=== PATIENT | female | born 1945 | race Caucasian/White ===

== ENCOUNTER 2020-09-20 16:13 | Outpatient (CLI) | payer MEDICARE, OTHER, SELFPAY | END 2020-09-20 16:14 | disposition home or self-care (01) | LOC: ANHCOVIDVC 16:14 | PROVIDERS: PCP Internal Medicine Nephrology | DX: Z23 Encounter for immunization (principal) | CPT/HCPCS: 0001A; 91300 ==

== ENCOUNTER 2020-10-11 16:14 | Outpatient (CLI) | payer MEDICARE, OTHER, SELFPAY | END 2020-10-11 16:15 | disposition home or self-care (01) | LOC: ANHCOVIDVC 16:14 | PROVIDERS: PCP Internal Medicine Nephrology | DX: Z23 Encounter for immunization (principal) | CPT/HCPCS: 0002A; 91300 ==

== ENCOUNTER 2021-12-16 08:55 | Outpatient (CLI) | payer MEDICARE, OTHER, SELFPAY ==
--- NOTE | ~2021-12-16 | US_ITS ---
EXAMINATION: US retroperitoneal duplex ltd DATE: 12/16/2021 10:03 CDT INDICATION: Essential hypertension. TECHNIQUE: Sonographic imaging of the kidneys was performed with a 3.5 MHz transducer. Retroperitone al duplex sonogram of the renal arteries also obtained. FINDINGS: No focal flow abnormalities are seen in the renal arteries on color Doppler. The peak syst olic velocity ranges of the right and left renal arteries and aorta are 168 cm per second, 86 cm per second, and 86 cm per second, respectively. The velocities and renal to aortic ratios are within norm al limits. IMPRESSION: 1. No Doppler evidence of renal artery stenosis. Reviewed, dictated and finalized at location A.
== END 2021-12-16 08:56 | disposition home or self-care (01) ==
PROVIDERS: PCP Nurse Practitioner Adult Health; Visit Provider Nurse Practitioner Adult Health
DX: I10 Essential (primary) hypertension (principal)
CPT/HCPCS: 93976

== ENCOUNTER 2023-11-02 09:51 | Outpatient (CLI) | payer MEDICARE, SELFPAY ==
[2023-11-02 19:00] LABS: Basophils Absolute Auto 0.1 K/mm3 (0.0-0.1); Basophils Percent Auto 1.6 % (0.2-1.2); Eosinophils Absolute Auto 0.8 K/mm3 (0-0.3); Eosinophils Percent Auto 11.3 % (0-4.4); Hematocrit 47.5 % (37.0-47.0); Hemoglobin 15.3 g/dL (12.0-15.0); Immature Granulocyte Absolute 0.02 K/mm3 (0.00-0.031); Immature Granulocyte Percent A 0.3 % (0-0.5); Lymphocytes Absolute Auto 1.29 K/mm3 (0.9-3.2); Lymphocytes Percent Auto 18.4 % (18.3-44.2); Mean Corpuscular HGB Conc 32.2 g/dl (32-36); Mean Corpuscular Volume 102.6 fl (80-100); Mean Platelet Volume 12.1 fl (7.4-10.4); Monocytes Absolute Auto 0.5 K/mm3 (0.1-0.6); Monocytes Percent Auto 7.7 % (2.6-8.5); Neutrophils Absolute Auto 4.3 K/mm3 (1.3-6.7); Neutrophils Percent Auto 60.7 % (45.5-73.1); Platelet Count Result 206 k/mm3 (150-375); Red Blood Count 4.63 M/mm3 (4.2-5.4); Red Cell Distribution Width 13.7 % (11.5-14.5)
[2023-11-02 19:30] LABS: Alanine Aminotransferase 21 U/L (6-35); Albumin Level 4.7 g/dL (3.5-5.1); Alkaline Phosphatase 68 U/L (38-126); Anion Gap 10 mmol/L (4-12); Aspartate Amino Transferase 26 U/L (14-36); Bilirubin,Total 0.5 mg/dL (0.2-1.3); Blood Urea Nitrogen 22 mg/dL (7-17); Calcium 10.2 mg/dL (8.4-10.2); Carbon Dioxide 28 mmol/L (22-30); Chloride 101 mmol/L (98-107); Cholesterol 182 mg/dL (0-200); Estimated Glomerular Filt Rate > 60; Glucose 292 mg/dL (65-110); HDL Direct 39 mg/dL; Potassium 4.7 mmol/L (3.4-5.0); Sodium 139 mmol/L (137-145); Triglycerides 503 mg/dL (<150)
[2023-11-02 19:32] LABS: Vitamin D 25 Hydroxy 57.6 ng/mL
[2023-11-02 19:42] LABS: LDL Cholesterol Direct 70 mg/dL
[2023-11-02 20:01] LABS: Microalbumin Urine Random 65.1 mg/L (0-16.7)
[2023-11-02 20:22] LABS: Hemoglobin A1C 10.1 % (<5.7)
== END 2023-11-02 09:52 | disposition home or self-care (01) ==
PROVIDERS: PCP Clinical Nurse Specialist; Visit Provider Clinical Nurse Specialist
DX: E11.9 Type 2 diabetes mellitus without complications (principal); E55.9 Vitamin D deficiency, unspecified; I10 Essential (primary) hypertension; I48.91 Unspecified atrial fibrillation
CPT/HCPCS: 36415; 80053; 80061; 82043; 82306; 82607; 83036; 85025

== ENCOUNTER 2024-05-09 10:35 | Outpatient (CLI) | payer MEDICARE, SELFPAY ==
[2024-05-09 13:12] LABS: Anion Gap 9 mmol/L (4-12); Blood Urea Nitrogen 19 mg/dL (7-17); Calcium 9.8 mg/dL (8.4-10.2); Carbon Dioxide 31 mmol/L (22-30); Chloride 96 mmol/L (98-107); Cholesterol 165 mg/dL (0-200); Estimated Glomerular Filt Rate > 60; Glucose 260 mg/dL (65-110); HDL Direct 38 mg/dL; Potassium 4.5 mmol/L (3.4-5.0); Sodium 136 mmol/L (137-145); Triglycerides 455 mg/dL (<150)
[2024-05-09 13:23] LABS: LDL Cholesterol Direct 60 mg/dL
[2024-05-09 14:44] LABS: MALB Creatinine Ratio 66.5 mg/g (0-30); Microalbumin Urine Random 69.2 mg/L (0-16.7)
[2024-05-09 14:46] LABS: Hemoglobin A1C 9.9 % (<5.7)
== END 2024-05-09 10:36 | disposition home or self-care (01) ==
PROVIDERS: PCP Internal Medicine; Visit Provider Clinical Nurse Specialist
DX: E11.9 Type 2 diabetes mellitus without complications (principal)
CPT/HCPCS: 36415; 80048; 80061; 82043; 83036

== ENCOUNTER 2024-09-11 08:08 | Outpatient (CLI) | payer MEDICARE, SELFPAY ==
--- OUTSIDE RECORDS SUMMARY | 2024-09-11 08:18 | XMS_ITS | Referral Summary ---
Author Organization [facility] D Address [address] [place] [address] Care Team Providers Care Linoleum Mechanic Name Role Phone Davida Soares NP Primary Care Provider [phone] Allergies Active Allergy Reactions Criticality Noted Date Comments Atorvastatin Muscle pain Medium 07/02/2019 Codeine Stomach upset Low 03/26/2016 Stomach/GI Upset Simvastatin Muscle pain Medium 07/02/2019 Medications rosuvastatin (CRESTOR) 20 mg tablet take 1 tablet (20MG) by oral route every day 0 2 Active omeprazole (PriLOSEC) 20 mg capsule take 1 capsule (20MG) by oral route every day before a meal 0 2 Active metFORMIN (GLUMETZA) 500 mg 24 hr tablet Take 2 tablets (1,000 mg total) by mouth daily with breakfast Active cholecalciferol (VITAMIN D-3) 50,000 unit capsule Take 1 capsule (50,000 Units total) by mouth once a week 9 Active multivitamin tabletIndicatio ns:Vitamin Deficiency Prevention Take 1 tablet by mouth daily Active atenoloL (TENORMIN) 100 mg tablet TAKE ONE AND ONE-HALF TABLETS BY MOUTH TWICE DAILY 135 tablet 3 1 Active Additional Information Patient taking differently: 150 mg oral 2 times daily, Reported on 11/17/2022 LANTUS 100 unit/mL (3 mL) pen for injection Inject 65 Units under the skin nightly 2 Active lisinopriL (PRINIVIL,ZESTR IL) 20 mg tablet TAKE ONE TABLET BY MOUTH TWICE DAILY 180 tablet 2 Active hydrALAZINE (APRESOLINE) 50 mg tablet TAKE ONE TABLET BY MOUTH TWICE DAILY 60 tablet 5 3 Active rivaroxaban (Xarelto) 20 mg tablet TAKE ONE TABLET BY MOUTH ONCE DAILY 90 tablet 2 3 Active magnesium gluconate 200 mg tabletIndicatio ns:hypomagnesem ia 1.25 tablets (250 mg total) Active omega-3 fatty acids-fish oil 300-1,000 mg capsule Take 2 capsules (2 g total) by mouth daily Active digoxin (LANOXIN) 125 mcg (0.125 mg) tablet TAKE ONE TABLET BY MOUTH ONCE DAILY 30 tablet 4 Active glipiZIDE (GLUCOTROL) 5 mg tablet Take 2 tablets (10 mg total) by mouth daily 4 Active Active Problems Problem Noted Date Diagnosed Date Chronic anticoagulation 04/21/2022 H/O cardiomyopathy 04/21/2022 Mixed diabetic hyperlipidemi a associated with type 2 diabetes mellitus 01/30/2022 Gastroesophageal reflux disease 05/10/2019 Type 2 diabetes mellitus wit h hyperglycemia, without long-term current use of insulin 05/10/2019 Vitamin D deficiency 05/10/2019 Benign paroxysmal positional vertigo of right ea r 05/10/2019 Class 1 obesity due to exces s calories with serious comorbidity and body mass index (BMI) of 30.0 to 30.9 in adult 05/10/2019 Chronic atrial fibrillation 02/01/2017 Assessment & Plan (02/04/2021 12:47 PM CDT): Rate is controlled and she is anticoagulated. Continue current management. Digoxin level. Assessment & Plan (05/26/2019 4:06 PM VEGETABLE PREPARER): Rate is a little fast. Will resume digoxin 0.125 mg daily. Assessment & Plan (02/14/2019 5:41 PM CDT): Rate is controlled and she is anticoagulated. Assessment & Plan (10/06/2018 2:02 PM CDT): Heart rate remains fast despite high-dose atenolol. Will increase atenolol to 200 mg b.i.d. And obtain a Holter monitor. Assessment & Plan (02/15/2018 11:59 AM CDT): Her heart rate is controlled and she is chronically anticoagulated. No change in management. Assessment & Plan (05/04/2017 11:07 AM CDT): Heart rate is still fast despite 100 mg of atenolol. Will obtain a 24 hour Holter to determine her heart rate through the course of the day. Will also obtain an echo Doppler to make sure that her atrial fibrillation is not adversely affecting her left ventricular function. Assessment & Plan (02/02/2017 11:45 AM CDT): Rate is faster than ideal despite atenolol 100 mg b.i.d.. Will increase atenolol to 150 mg b.i.d. for better rate control and will see her back in 3 months. Continue anticoagulation. Hypertension associated with diabetes 02/01/2017 Assessment & Plan (02/04/2021 12:47 PM CDT): Blood pressure is adequately controlled on current regimen. No change was made. Assessment & Plan (05/26/2019 4:07 PM VEGETABLE PREPARER): Since the discontinuation of hydrochlorothiazide, blood pressure is high. Will increase lisinopril to 20 mg b.i.d.. Assessment & Plan (02/14/2019 5:42 PM CDT): Blood pressure is adequately controlled on current regimen. No change was made. Assessment & Plan (10/06/2018 2:02 PM CDT): Blood pressure is adequately controlled on current regimen. No change was made. Assessment & Plan (02/15/2018 11:59 AM CDT): Blood pressure is adequately controlled on current regimen. No change was made. Assessment & Plan (05/04/2017 11:07 AM CDT): Blood pressure is adequately controlled on current regimen. No change was made. Assessment & Plan (02/02/2017 11:45 AM CDT): Blood pressure is well controlled. With increasing atenolol, want to avoid hypotension. Will discontinue amlodipine. Resolved Problems Problem Noted Date Diagnosed Date Resolved Date Sinus pause 05/10/2019 05/11/2019 Hyponatremia 05/10/2019 05/11/2019 Hypomagnesemia 05/10/2019 05/11/2019 Non-intractable vomiting with nausea 05/10/2019 05/11/2019 Cardiomyopathy 10/06/2018 04/21/2022 Assessment & Plan (02/04/2021 12:47 PM CDT): Cardiomyopathy is mild. She is asymptomatic. Assessment & Plan (02/14/2019 5:42 PM CDT): LV dysfunction is very mild and may improve with better control of heart rate. Assessment & Plan (10/06/2018 2:03 PM CDT): Mild cardiomyopathy documented on echocardiogram in April 2017. Will repeat echo Doppler. Hyperlipidemia 02/02/2017 01/30/2022 Assessment & Plan (02/04/2021 12:47 PM CDT): LDL today is excellent at 64. Triglycerides however or over 600 likely secondary to poorly controlled diabetes for which she needs to see her primary care provider as soon as possible. Assessment & Plan (02/14/2019 5:42 PM CDT): On chronic lipid lowering therapy with good control. No changes made. Assessment & Plan (10/06/2018 2:03 PM CDT): On chronic lipid-lowering therapy. Assessment & Plan (02/15/2018 11:59 AM CDT): On chronic lipid lowering therapy with good control. No changes made. Assessment & Plan (02/02/2017 11:47 AM CDT): LDL is at target at 82 on Crestor, even on her reduced dosage of 10 mg daily. Immunizations Immunization Administration Dates Next Due Pfizer SARS-CoV-2 Monovalent Vaccination (12+ Yrs) PURPLE 10/11/2020,09/20/2020 Social History Tobacco Use Types Packs/Day Years Used Date Smoking Tobacco: Never Smokeless Tobacco: Never Tobacco Cessation:Counseling Given: Not Answered Alcohol Use Standard Drinks/Week Comments Yes 0 (1 standard drink = 0.6 oz pur e alcohol) Personal Safety Answer Date Recorded Getting School Help Needed Not on file 09/26 Comments Unknown Sex and Gender Information Value Date Recorded Sex Assigned at Not on file Legal Sex Female 1:59 AM VEGETABLE PREPARER Gender Identity Not on file Sexual Orientation Not on file Last Filed Vital Signs Vital Sign Reading Time Taken Comments Blood Pressure 134/88 05/11/2024 10:59 AM CDT Pulse 90 05/11/2024 10:59 AM CDT Temperature 36.7 C (98 F) 05/11/2019 12:11 PM CDT Respiratory Rate 16 05/11/2019 12:11 PM CDT Oxygen Saturation 97% 05/11/2024 10:59 AM CDT Inhaled Oxygen Concentration - - Weight 80.3 kg (177 lb) 05/11/2024 10:59 AM CDT Height 162.6 cm (5' 4 ) 05/11/2024 10:59 AM CDT Body Mass Index 30.38 05/11/2024 10:59 AM CDT Plan of Treatment Not on file Procedures Procedure Name Priority Date/Time Associated Diagnosis Comments LIPID PANEL Routine 11/02/2023 10:04 AM CDT EGFR Routine 05/11/2019 6:06 AM CDT HEMOGLOBIN A1C Routine 05/11/2019 6:06 AM CDT from Last 3 Months or Most Recently Relevant to Health Maintenance Results * (ABNORMAL) Lipid panel (11/02/2023 10:04 AM CDT) SCRIBED Cholesterol, Total 182 0 - 200 EXTERNAL LAB SCRIBED HDL 39(A) 40 - 100 EXTERNAL LAB SCRIBED LDL 70 0 - 100 EXTERNAL LAB SCRIBED Triglycerides 504(A) 0 - 150 EXTERNAL LAB Blood 11/02/2023 10:0 4 AM CDT Historical Provider LAB BLOOD ORDERABLES Kelli mayberry Result Performing Organization Address City/[facility] Co de Phone Number EXTERNAL LAB * eGFR (05/11/2019 6:06 AM CDT) eGFR 89 mL/min/1.7 3 m2 [facility] Comment: Interpretive Data Reference Interval Normal >/= 90 mL/min/1.73m2 Mildly decreased* 60 - 89 mL/min/1.73m2 Mildly to moderately decreased 45 - 59 mL/min/1.73m2 Moderately to severely decreased 30 - 44 mL/min/1.73m2 Severely decreased 15 - 29 mL/min/1.73m2 Kidney Failure < 15 mL/min/1.73m2 *Relative to young adult level If -Maldivian multiply value by 1.16. Estimated glomerular filtration rate is determined by the CKD-EPI equation recommended by the National Kidney Foundation (KDIGO 2012 Clinical Practice Guideline for the Evaluation and Management of Chronic Kidney Disease. Kidney Intnl Suppl Jul 2012;3:1). The CKD-EPI equation should not be used for patients with unstable renal function and has not been validated in children and those over 70. Current interpretive data was last reviewed 2016. Blood specimen (specimen) 05/11/2019 6:06 AM CDT 05/11/2019 6:59 AM CDT Tam Milton MD LAB BLOOD ORDERABLES Fin al Result Performing Organization Address [facility] Co de Phone Number [facility] [address] Department [place] [address] * (ABNORMAL) Hemoglobin A1c (05/11/2019 6:06 AM CDT) Hgb A1C 9.2(H) 4.0 - 5.6 % [facility] Estimated Average Glucose 217 mg/dL [facility] Comment: The ADA recommends reporting an estimated Average Glucose (eAG) with all Hemoglobin A1c results using the equation derived from a study of 507 normal and diabetic adults. Minority populations were underrepresented and children were not included. (Diabetes Care 31:4891-2882, 2008). The eAG is not equivalent to a fasting glucose. Blood specimen (specimen) 05/11/2019 6:06 AM CDT 05/11/2019 7:00 AM CDT us Tam Milton MD LAB BLOOD ORDERABLES Fin al Result [facility] [address] [place] [address] from Last 3 Months or Most Recently Relevant to Health Maintenance Insurance MEDICARE [employer] [facility] MEDICARE Address: [facility] [address] [place] [address] Advance Directives For more information, please contact: [phone] * Full Code (Latest Code Status on File) Date Activated Date Inactivated Comments 05/10/2019 8:28 PM 05/11/2019 9:13 PM Care Teams Linoleum Mechanic Relationship Specialty Start Date End Date Davida Soares NP PCP - General Nurse Practitioner 02/02/17
--- OUTSIDE RECORDS SUMMARY | 2024-09-11 08:18 | XMS_ITS | Clinical Summary ---
Author Organization [facility] Address [address] [place] [address] Phone Care Team Providers Care Nurse Ob Name Role Phone Davida Soares NP Primary Care Provider [phone] Allergies Active Allergy Reactions Criticality Noted Date Comments Codeine 07/02/2019 Atorvastatin Myopathy 07/02/2019 Simvastatin Myopathy 07/02/2019 Medications Medication Sig Dispensed Refills Start Date End Date Status atenolol (TENORMIN) 100 MG tablet Take 150 mg by mouth 2 times daily 10/10/2018 Active cholecalciferol (D3-50) 1.25 MG (81610 UT) capsule Take 50,000 Units by mouth 05/08/2019 Active digoxin (LANOXIN) 125 MCG tablet Take 125 mcg by mouth daily 10/21/2018 Active lisinopril (PRINIVIL,ZESTRIL) 20 MG tablet Take 20 mg by mouth 2 times daily 05/26/2019 Active metFORMIN (GLUMETZA) 500 MG 24 hr tablet Take 500 mg by mouth 2 times daily Active rivaroxaban (XARELTO) 20 MG tablet daily 10/06/2018 Active rosuvastatin (CRESTOR) 20 MG tablet daily 04/26/2012 Active omeprazole (PriLOSEC) [address] capsule 1 capsule daily 04/26/2012 Active Multiple Vitamins-Minerals (MULTI VITAMIN/MINERALS) tablet Take 1 tablet by mouth Active fluticasone (FLONASE) 50 MCG/ACT nasal spray fluticasone propionate 50 mcg/actuation nasal spray,suspension 10/01/2021 Active hydrALAZINE (APRESOLINE) 50 MG tablet 01/30/2022 Active Lantus SoloStar 100 UNIT/ML injection 03/11/2022 Active TRUEplus Pen Alkol 32G X 4 MM misc 01/23/2022 Active ketorolac (ACULAR) 0.5 % ophthalmic solution 12/26/2021 Active ofloxacin (OCUFLOX) 0.3 % ophthalmic solution 12/26/2021 Active prednisoLONE acetate (PRED FORTE) 1 % ophthalmic suspension SHAKE LIQUID AND INSTILL 1 DROP TO SURGICAL EYE THREE TIMES DAILY STARTING AFTER SURGERY 12/30/2021 Active Active Problems Problem Noted Date Diagnosed Date Mixed hyperlipidemia due to type 2 diabetes jourdan itus 01/30/2022 Motion sickness 11/24/2021 Eczema 07/02/2019 Edema 07/02/2019 Fatigue 07/02/2019 Low back pain 07/02/2019 Menopause finding 07/02/2019 Osteoarthritis of knee 07/02/2019 Benign paroxysmal positional vertigo 05/10/2019 Gastroesophageal reflux disease 05/10/2019 Obesity 05/10/2019 Vitamin D deficiency 05/10/2019 Type 2 diabetes mellitus 05/10/2019 Dizziness 03/30/2019 Hyponatremia 03/30/2019 Cardiomyopathy 10/06/2018 Overview (07/02/2019): Last Assessment & Plan: LV dysfunction is very mild and may improve with better control of heart rate. Last Assessment & Plan: LV dysfunction is very mild and may improve with better control of heart rate. Hyperlipidemia 02/02/2017 Overview (07/02/2019): Last Assessment & Plan: On chronic lipid lowering therapy with good control. No changes made. Last Assessment & Plan: On chronic lipid lowering therapy with good control. No changes made. Chronic atrial fibrillation 02/01/2017 Overview (07/02/2019): Last Assessment & Plan: Rate is controlled and she is anticoagulated. Last Assessment & Plan: Rate is a little fast. Will resume digoxin 0.125 mg daily. Essential hypertension 02/01/2017 Overview (07/02/2019): Last Assessment & Plan: Blood pressure is adequately controlled on current regimen. No change was made. Last Assessment & Plan: Since the discontinuation of hydrochlorothiazide, blood pressure is high. Will increase lisinopril to 20 mg b.i.d.. Immunizations Name Administration Dates Next Due Influenza Split High Dose Pr eservative Free IM 04/22/2016 Influenza TIV (IM) 05/27/2015,05/26/2014, 013 Influenza, Injectable, Quadrivalent 05/16/2019 Pfizer Sars-cov-2 Vaccination 10/11/2020, 021 Pneumococcal Conjugate 13-Valent 05/27/2015 Pneumococcal Polysaccharide 07/23/2011 Zoster 01/28/2011 Family History Medical History Relation Comments Coronary artery disease Brother Stroke Brother Coronary artery disease Father Cervical cancer Mother Heart disease Mother Relation Status Comments Brother Father Mother Social History Tobacco Use Types Packs/Day Years Used Date Smoking Tobacco: Never Smokeless Tobacco: Never Alcohol Use Standard Drinks/Week Comments Yes 0 (1 standard drink = 0.6 oz pur e alcohol) occassional use Sex and Gender Information Value Date Recorded Sex Assigned at Not on file Gender Identity Not on file Sexual Orientation Not on file Last Filed Vital Signs Vital Sign Reading Time Taken Comments Blood Pressure 138/80 04/02/2022 10:54 AM CDT Pulse - - Temperature 35.6 C (96 F) 04/02/2022 10:54 AM CDT Respiratory Rate 18 04/02/2022 10:54 AM CDT Oxygen Saturation - - Inhaled Oxygen Concentration - - Weight 78.6 kg (173 lb 3.2 oz) 04/02/2022 10:54 AM CDT Height 160 cm (5' 3 ) 04/02/2022 10:54 AM CDT Body Mass Index 30.68 04/02/2022 10:54 AM CDT Plan of Treatment Health Maintenance Due Date Last Done Comments COVID-19 Vaccine ( season) 2024, 09/20/2020 Influenza Vaccine (#1) 2024 5, 05/26/2014, 05/25/2013 Pneumococcal PPSV23/PCV13 65 + Years / Low and Medium Risk Completed 05/27/2015, 07/23/2011 Care Teams Nurse Ob Relationship Specialty Start Date End Date Davida Soares NP [facility] [place] [address] PCP - General Internal Medicine 06/26/19
--- OUTSIDE RECORDS SUMMARY | 2024-09-11 08:18 | XMS_ITS | Clinical Summary ---
Author Organization [facility] D Address [address] [place] [address] Care Team Providers Care Presser Automatic Name Role Phone Davida Soares NP Primary Care Provider [phone] Allergies Active Allergy Reactions Criticality Noted Date [...] level. Assessment & Plan (05/26/2019 4:06 PM PLAQUE MAKER): Rate is a little fast. Will resume [...] made. Assessment & Plan (05/26/2019 4:07 PM PLAQUE MAKER): Since the discontinuation of hydrochlorothiazide, blood pressure [...] SARS-CoV-2 Monovalent Vaccination (12+ Yrs) PURPLE 10/11/2020,09/20/2020 Medical History Medical History Date Comments Atrial fibrillation (CMS/HCC) (HCC) Hyperlipidemia Family History Medical History Relation Name Comments Coronary artery disease Brother 3 1 Nelda nary Artery Disease; Coronary artery disease Brother 4 2 Nelda nary Artery Disease; Coronary artery disease Father 2 Nelda nary Artery Disease; Coronary artery disease Mother 2 Nelda nary Artery Disease; Relation Name Status Comments Brother 1 1 Alive Brother 2 2 Alive Brother 3 1 Brother 4 2 Father 1 Alive Father 2 Mother 1 Alive Mother 2 Social History Tobacco Use Types Packs/Day Years [...] on file Legal Sex Female 1:59 AM PLAQUE MAKER Gender Identity Not on file Sexual Orientation Not on file Obstetrics History Last Filed Vital Signs Vital Sign Reading [...] 05/11/2024 10:59 AM CDT Plan of Treatment Health Maintenance Due Date Last Done Comments Albumin Creatinine Ratio, Urine 1945 Depression Screening 1945 Fall Risk Assessment 1945 Hepatitis C Screening 1945 Dilated Eye Exam 1945 Foot Exam 1945 DTaP/Tdap/Td Vaccine (1 - Tdap) 01/18/1956 Hepatitis B Screening 1963 Well Visit 65+ 2010 Zoster Vaccine (2 of 3) 03/25/2011 01/28/2011 Hemoglobin A1C 11/10/2019 05/11/2019 eGFR 05/11/2020 05/11/2019 Covid-19 Vaccine (3 - 2023-2 5 season) 2024 10/11/2020, 09/20/2020 Influenza Vaccine (#1) 2024 9, 05/15/2019, 04/27/2018, Additional history exists Osteoporosis Screening-Bone Density Scan 09/22/2024 09/22/2022 Lipid Panel 11/01/2024 11/02/2023, 05/19, 05/25/2023, Additional history exists Pneumococcal vaccine 65+ Completed 05/26/2015, 11/2011 Procedures Procedure Name Priority Date/Time Associated Diagnosis [...] LAB Blood 11/02/2023 10:0 4 AM CDT us Historical Provider LAB BLOOD ORDERABLES Kelli l Result EXTERNAL LAB * eGFR (05/11/2019 6:06 AM CDT) eGFR 89 mL/min/1.7 3 m2 [facility] Comment: Interpretive Data Reference Interval Normal >/= 90 mL/min/1.73m2 Mildly decreased* 60 - 89 mL/min/1.73m2 Mildly to moderately decreased 45 - 59 mL/min/1.73m2 Moderately to severely decreased 30 - 44 mL/min/1.73m2 Severely decreased 15 - 29 mL/min/1.73m2 Kidney Failure < 15 mL/min/1.73m2 *Relative to young adult level If -Puerto Rican multiply value by 1.16. Estimated glomerular filtration [...] ORDERABLES Fin al Result Performing Organization Address [facility] de Phone Number [facility] [address] [place] [address] * (ABNORMAL) Hemoglobin A1c (05/11/2019 6:06 AM CDT) [facility] Signature Hgb A1C 9.2(H) 4.0 - 5.6 % [facility] Estimated Average Glucose 217 mg/dL [facility] Comment: The ADA recommends reporting an estimated Average Glucose (eAG) with all Hemoglobin A1c results using the equation derived from a study of 507 normal and diabetic adults. Minority populations were underrepresented and children were not included. (Diabetes Care 31:7531-1316, 2008). The eAG is not equivalent to a fasting glucose. Blood specimen (specimen) 05/11/2019 6:06 AM CDT 05/11/2019 7:00 AM CDT Tam Milton MD LAB BLOOD ORDERABLES Fin al Result Performing Organization Address [facility] Co de Phone Number [facility] [address] [place] [address] from Last 3 Months or Most Recently Relevant to Health Maintenance Insurance MEDICARE SOLUTIONS Advance Directives For more information, please contact: [phone] * Full Code (Latest Code Status on File) Date Activated Date Inactivated Comments 05/10/2019 8:28 PM 05/11/2019 9:13 PM Care Teams Presser Automatic Relationship Specialty Start Date End Date Davida Soares NP PCP - General Nurse Practitioner 02/02/17
--- OUTSIDE RECORDS SUMMARY | 2024-09-11 08:19 | XMS_ITS | Encounter Summary ---
Author Organization [facility] Address [address] [place] [address] Care Team Providers Care Substation Technician Name Role Phone Rodger Davida TAYLOR Primary Care Provider [phone] Encounter Details Date Type Department Care Team (Late st Contact Info) Description 04/08/2019 Hospital Follow-up Call [facility] Med/Surg [address] [place] [address] Julia Ayers RN Social History Tobacco Use Types Packs/Day Years Used Date Smoking Tobacco: Never Smokeless Tobacco: Never Alcohol Use Standard Drinks/Week Comments Yes 0 (1 standard drink = 0.6 oz pur e alcohol) socially Comments Unknown Sex and Gender Information Value Date Recorded Sex Assigned at Not on file Legal Sex Female 8:03 PM CDT Gender Identity Not on file Sexual Orientation Not on file documented as of this encounter Functional Status * RETIRED Are you deaf or do you have serious difficulty hearing Answer Date of Assessment Author Status No 04/01/2019 11:43 AM CDT Acti ve * RETIRED Are you blind or do you have serious difficulty seeing, even when wearing glasses? Answer Date of Assessment Author Status No 04/01/2019 11:43 AM CDT Acti ve * Do you have serious difficulty walking or climbing stairs? Answer Date of Assessment Author Status Yes 04/01/2019 11:43 AM TOMT Tyra Lozano RN Active * Do you have difficulty dressing or bathing? Answer Date of Assessment Author Status No 04/01/2019 11:43 AM Tyra Ortiz RN Active * Because of a physical, mental, or emotional condition, do you have difficulty doing errands alone such as visiting a doctor's office or shopping? Answer Date of Assessment Author Status No 04/01/2019 11:43 AM Tyra Ortiz RN Active documented as of this encounter Mental Status * Because of a physical, mental, or emotional condition, do you have serious difficulty concentrating, remembering, or making decisions? Answer Entry Date Author Status No 04/01/2019 11:43 AM Tyra Ortiz RN Active documented in this encounter Plan of Treatment Not on file documented as of this encounter Visit Diagnoses Not on filedocumented in this encounter Care Teams Substation Technician Relationship Specialty Start Date End Date Davida Soares NP [address] [place] [address] PCP - General NURSE PRACTITIONER 03/30/19 documented as of this encounter
--- OUTSIDE RECORDS SUMMARY | 2024-09-11 08:19 | XMS_ITS | Data Portability ---
Author Organization [facility] [place], Main Office Address [address] [place] [address] Care Team Providers Care Wildland Firefighter Name Role Phone LOYD GRECO Primary Care Provider [phone] Assessment Encounter Date Assessment Date Assessment LastModified by Organization Details LastModified Time 04/01/2023 04/01/2023 77 yo F with - B/L CERUMEN IMPACTION - DM II - HTN - A FIB - HLD - B/L KNEE PAIN, chronic - ALLERGIC RHINITIS - OVERWEIGHT US renal arteries: 12/16/21. D/w pt in detail about her conditions, recent labs & imagines and further plan of care. Advised pt to go for routine labs soon. Orders given again. Advised to do x-ray of knees/refer to Ortho; but pt declined. Meds as directed. Diet and exercise explained in detail. BP diary education given and call us if any concerns. Fall risk precautions explained. Cont f/u with Cardio at [facility] as per schedule. Cont f/u with Ophtho as per schedule. HM: WWE - Long time ago. Pt declined. Mammo - Pt declined. Colonoscopy - Pt declined. DEXA - 09/22/22, normal. Flu - Pt declined. Tdap, Pneumo, Shingrix - At pharmacy/HD. F/u in few weeks. B/l ear flushing on next visit. Annual labs in 09/11. [email or web address] Not available 04/01/2023 15:37:14 04/20/2023 04/20/2023 78 yo F with - B/L CERUMEN IMPACTION; S/p flushing - HYPOTHYROIDISM, new - HYPOMAGNESEMIA, new - HTG, uncontrolled - HLD - DM II - HTN - A FIB - B/L KNEE PAIN, chronic - ALLERGIC RHINITIS - OVERWEIGHT HbA1c: 10.6(04/05/23) Annual labs: 04/05/23. US renal arteries: 12/16/21. D/w pt in detail about her conditions, recent labs & imagines and further plan of care. Verbal consent taken for b/l ear flushing. Pt did well with it. Pt declined for any Levothyroxine at this time. Advised to refer to Endo; but pt declined. Meds as directed. Diet and exercise explained in detail. BP diary education given and call us if any concerns. Fall risk precautions explained. Cont f/u with Cardio at [facility] as per schedule. Cont f/u with Ophtho as per schedule. Advised to do x-ray of knees/refer to Ortho; but pt declined. HM: WWE - Long time ago. Pt declined. Mammo - Pt declined. Colonoscopy - Pt declined. DEXA - 09/22/22, normal. Flu - 04/20/23. Tdap, Pneumo, Shingrix - At pharmacy/HD. F/u in 3 months. A1c, lipids, Mg before next visit. Annual labs in 04/11. [email or web address] Not available 04/20/2023 15:15:51 Plan of Treatment Reminders Order Date Submit Date Provider Last Modified By Organization Details Last Modified Time Details Appointments None recorded. Lab magnesium, serum or plasma 2022 023 [facility] (Lab), [address] [place], [address], 3 09:38:49 lipid panel, serum 2022 023 [email or web address] [facility] (Lab), [address] [place], [address], 3 09:38:48 glycohemogl obin, total, blood 2022 023 [email or web address] [facility] (Lab), [address] [place], [address], 3 09:38:48 TSH, serum or plasma 2022 023 [email or web address] [facility] (Lab), [address] [place], [address], 3 09:38:48 uric acid, serum or plasma 2022 023 [facility] (Lab), [address] [place], [address], 3 18:14:21 CBC w/ auto diff 2022 023 [facility] (Lab), [address] [place], [address], 3 14:07:56 CMP, serum or plasma 2022 023 [facility] (Lab), [address] [place], [address], 3 18:13:58 urinalysis complete, reflex culture [address] (Lab), [address] [place], [address], 3 08:47:21 TSH, serum or plasma 2022 023 [facility] (Lab), [address] [place], [address], 3 15:19:48 lipid panel, serum 2022 023 [facility] (Lab), [address] [place], [address], 3 18:14:11 vitamin D, 25-hydroxy, total, serum [address] (Lab), [address] [place], [address], 08:47:21 glycohemogl obin, total, blood 2022 023 [facility] (Lab), [address] [place], [address], 15:09:40 microalbumi n, urine 2022 023 [facility] (Lab), [address] [place], [address], 14:47:01 magnesium, serum or plasma 2022 023 [facility] (Lab), [address] [place], [address], 18:14:02 Referral None recorded. Procedures None recorded. Surgeries None recorded. Imaging None recorded. Medication Orders atenolol 100 mg tablet 2022 023 [facility], [address], [place], [place], [id number], 14:38:33 hydralazine 50 mg tablet 2022 023 [facility], [address], [place], [place], [id number], 14:38:26 lisinopril 20 mg tablet 2022 023 [facility], [address], [place], [place], [id number], 14:38:33 magnesium oxide 400 mg (241.3 mg magnesium) tablet 2022 023 [facility], [address], [place], [place], [id number], 14:38:30 rosuvastati n 20 mg tablet 2022 [facility], [address], [place], [place], [id number], 14:38:24 fluticasone propionate 50 mcg/actuati on nasal spray,suspe nsion 2022 [facility], [address], [place], [place], [id number], 14:38:32 omeprazole 20 mg capsule,del ayed release 2022 [facility], [address], [place], [place], [id number], 14:38:28 Xarelto 20 mg tablet 2022 [facility], [address], [place], [place], [id number], 14:38:28 metformin ER 500 mg tablet,exte nded release 24 hr 2022 [facility], [address], [place], [place], [id number], 14:38:31 Vascepa 1 gram capsule 2022 [facility], [address], [place], [place], [id number], 14:38:35 Lantus Solostar U-100 Insulin 100 unit/mL (3 mL) subcutaneou s pen 2022 [facility], [address], [place], [place], [id number], 3 14:38:26 Jardiance 25 mg tablet 2022 023 [facility], [address], [place], [place], [id number], 3 14:38:24 Ozempic 0.25 mg or 0.5 mg (2 mg/3 mL) subcutaneou s pen injector 2022 023 [facility], [address], [place], [place], [id number], 3 14:38:30 atenolol 100 [address] tablet [address] [facility], [address], [place], [place], [id number], 3 15:05:25 hydralazine 50 mg tablet [address] [facility], [address], [place], [place], [id number], 3 15:05:21 lisinopril 20 mg tablet [address] [facility], [address], [place], [place], [id number], 3 15:05:25 fluticasone propionate 50 mcg/actuati on nasal spray,suspe nsion [address] [facility], [address], [place], [place], [id number], 3 15:05:23 rosuvastati n 20 mg tablet 2022 023 [facility], [address], [place], [place], [id number], 3 15:05:21 omeprazole 20 mg capsule,del ayed release [address] [facility], [address], [place], [place], [id number], 3 15:05:19 metformin ER 500 mg tablet,exte nded release [address] [facility], [address], [place], [place], [id number], 3 15:05:23 Xarelto 20 mg tablet 2022 023 [facility], [address], [place], [place], [id number], 3 15:05:26 Patient TargetsNo targets recorded. Patient InstructionsNo instructions recorded. Reason for Referral None Reported. Results Created Date Observation Date Name Description Value Unit Range Abnormal Flag Note LastModifiedBy Organization Detail LastModifiedTime 11/06/19 22 11/05/2021 LIPID PANEL cholesterol 173 mg/dL 140-19 9 NIH TAI NSUS RECOM MENDA TION FOR MANOHAR STERO L: ADULT CHILD LOW RISK: <200 <170 BORDE RLINE : <200- 239 ----- HIGH RISK: >240 >200 Not Available [facility] (Lab) [address] [place], [address], 11/05/2021 19:54:54 11/06/19 22 11/05/2021 LIPID PANEL triglyceride s 361 mg/dL 0-150 high NIH TAI NSUS REPOR T RECOM MENDA TION FOR TRIGL YCERI PAULO: ADULT CHILD LOW RISK: <150 ----- BODER LINE: 150-1 99 ----- HIGH RISK: >200 ----- Not Available [facility] (Lab) [address] [place], [address], 11/05/2021 19:54:54 11/06/19 22 11/05/2021 LIPID PANEL HDL cholesterol 38 mg/dL 40- low Not Available [facility] (Lab) [address] [place], [address], 11/05/2021 19:54:54 11/06/19 22 11/05/2021 LIPID PANEL LDL cholesterol, calculated 63 mg/dL 0-130 NIH TAI NSUS REPOR T RECOM MENDA TIONS FOR LDL: ADULT CHILD LOW RISK <130 <110 (OPTI MAL LDL) <100 ----- BORDE RLINE : 130-1 59 ----- HIGH RISK: >160 >130 A TRIGL YCERI DE RESUL T >400 INVAL IDATE S THE CALCU LATIO N FOR LDL FRACT IONAT ION - THE LDL RESUL T WILL NOT BE REPOR CHRISTIANNE. Not Available [facility] (Lab) [address] [place], [address], 11/05/2021 19:54:54 11/06/19 22 11/05/2021 HEMOG LOBIN A1C HA1C 7.9 % 4.0-6. 0 high Diabe shree Scree laura Crite loulou: <5.7% Consi stent with absen ce of diabe shree 5.7-6 .4% Consi stent with incre ased risk for diabe shree (pred iabet es) >OR=6 .5% Consi stent with diabe shree REFER ENCE: Diabe shree Care 2016, 39(Perez ppl.1 ):s13 -s22 Not Available [facility] (Lab) [address] [place], [address], 11/05/2021 21:08:35 11/06/19 22 11/05/2021 MICRO ALBUM IN RANDO M URINE microalbumin , urine 95.4 mg/L 0.0-16 .6 high Not Available [facility] (Lab) [address] [place], [address], 11/05/2021 20:07:11 11/06/19 22 11/05/2021 BASIC METAB OLIC PANEL sodium 134 mmol/ L 137-14 5 low Not Available [facility] (Lab) [address] [place], [address], 11/05/2021 19:55:24 11/06/19 22 11/05/2021 BASIC METAB OLIC PANEL potassium 4.9 mmol/ L 3.5-5. 1 Not Available [facility] (Lab) [address] [place], [address], 11/05/2021 19:55:24 11/06/19 22 11/05/2021 BASIC METAB OLIC PANEL chloride 95 mmol/ L 98-107 low Not Available [facility] (Lab) [address] [place], [address], 11/05/2021 19:55:24 11/06/19 22 11/05/2021 BASIC METAB OLIC PANEL carbon dioxide 30 mmol/ L 22-30 Not Available [facility] (Lab) [address] [place], [address], 11/05/2021 19:55:24 11/06/19 22 11/05/2021 BASIC METAB OLIC PANEL anion gap 13.9 mmol/ L 14-22 low Not Available [facility] (Lab) [address] [place], [address], 11/05/2021 19:55:24 11/06/19 22 11/05/2021 BASIC METAB OLIC PANEL glucose 191 mg/dL 70-99 high Not Available [facility] (Lab) [address] [place], [address], 11/05/2021 19:55:24 11/06/19 22 11/05/2021 BASIC METAB OLIC PANEL BUN 17 mg/dL 8-19 Not Available [facility] (Lab) [address] [place], [address], 11/05/2021 19:55:24 11/06/19 22 11/05/2021 BASIC METAB OLIC PANEL creatinine 0.63 mg/dL 0.66-1 .25 low Not Available [facility] (Lab) [address] [place], [address], 11/05/2021 19:55:24 11/06/19 22 11/05/2021 BASIC METAB OLIC PANEL GFR >60 Refer ence Range : [place] ge GFR Healt hy Adult : >60 mL/mi n/1.7 3 m2 Chron ic Kidne y Disea se: 15-60 mL/mi n/1.7 3 m2 Kidne y Failu re: <15/m L/min /1.73 m2 www.n iddk. nih.g ov The MDRD study equat ion has not been valid ated in child madhuri <18 years of age; pregn ant women ; the elder ly >85 years of age; or in some racia l or ethni c subgr oups, such as Hiswv nics. Outsi de the valid ated dk eters , estim ated GFR is less accur ate, requi ring clini javier judgm ent on a case- by-ca se basis . Clini javier inter preta tion for other races and ages must be made by the clini shadi. The MDRD study equat ion has not been valid ated for the evalu ation of serum creat inine relat ed to nutri juarez l statu s or medic ation usage . For perso ns <18 years of age, a pedia tric GFR calcu lator is avail able on the F websi te: https ://ww w.kid tess.o rg/pr ofess ional s/kdo qi/gf r_cal culat or Not Available [facility] (Lab) [address] [place], [address], 11/05/2021 19:55:24 11/06/19 22 11/05/2021 BASIC METAB OLIC PANEL calcium 10.1 mg/dL 8.4-10 .2 Not Available [facility] (Lab) [address] [place], [address], 11/05/2021 19:55:24 11/06/19 22 11/05/2021 HEPAT IC/LI TOSHIA PANEL alkaline phosphatase 64 U/L 38-126 Not Available [facility] (Lab) [address] [place], [address], 11/05/2021 19:55:19 11/06/19 22 11/05/2021 HEPAT IC/LI TOSHIA PANEL alanine aminotransfe rase 22 U/L 0-35 Not Available [facility] (Lab) [address] [place], [address], 11/05/2021 19:55:19 11/06/19 22 11/05/2021 HEPAT IC/LI TOSHIA PANEL aspartate aminotransfe rase 29 U/L 15-37 Not Available [facility] (Lab) [address] [place], [address], 11/05/2021 19:55:19 11/06/19 22 11/05/2021 HEPAT IC/LI TOSHIA PANEL bilirubin, total 0.80 mg/dL 0.20-1 .30 Not Available [facility] (Lab) [address] [place], [address], 11/05/2021 19:55:19 11/06/19 22 11/05/2021 HEPAT IC/LI TOSHIA PANEL bilirubin, conjugated (direct) 0.00 mg/dL 0.00-0 .30 Not Available [facility] (Lab) [address] [place], [address], 11/05/2021 19:55:19 11/06/19 22 11/05/2021 HEPAT IC/LI TOSHIA PANEL biliurubin,u ncong. (indirect) 0.30 mg/dL 0.00-1 .1 Not Available [facility] (Lab) [address] [place], [address], 11/05/2021 19:55:19 11/06/19 22 11/05/2021 HEPAT IC/LI TOSHIA PANEL total protein 7.5 g/dL 6.3-8. 2 Not Available [facility] (Lab) [address] [place], [address], 11/05/2021 19:55:19 11/06/19 22 11/05/2021 HEPAT IC/LI TOSHIA PANEL albumin 4.5 g/dL 3.0-4. 4 high Not Available [facility] (Lab) [address] [place], [address], 11/05/2021 19:55:19 11/06/19 22 11/05/2021 HEPAT IC/LI TOSHIA PANEL globulin 3.0 g/dL 2.6-4. 2 Not Available [facility] (Lab) [address] [place], [address], 11/05/2021 19:55:19 11/06/19 22 11/05/2021 HEPAT IC/LI TOSHIA PANEL A/G ratio 1.5 ratio 1.0-2. 0 Not Available [facility] (Lab) [address] [place], [address], 11/05/2021 19:55:19 11/06/19 22 11/05/2021 VITAM IN D 25-HY DROXY [id number] 67.3 NG/mL 30-100 Vitam in D Statu s: Defic ient: <20 ng/mL Insuf ficie nt: 20-29 ng/mL Suffi cient : 30-10 0 ng/mL Not Available [facility] (Lab) [address] [place], [address], 11/05/2021 19:53:42 12/02/19 22 12/01/2021 BASIC METAB OLIC PANEL sodium 137 mmol/ L 137-14 5 Not Available [facility] (Lab) [address] [place], [address], 12/01/2021 19:12:20 12/02/19 22 12/01/2021 BASIC METAB OLIC PANEL potassium 4.7 mmol/ L 3.5-5. 1 Not Available [facility] (Lab) [address] [place], [address], 12/01/2021 19:12:20 12/02/19 22 12/01/2021 BASIC METAB OLIC PANEL chloride 98 mmol/ L 98-107 Not Available [facility] (Lab) [address] [place], [address], 12/01/2021 19:12:20 12/02/19 22 12/01/2021 BASIC METAB OLIC PANEL carbon dioxide 31 mmol/ L 22-30 high Not Available [facility] (Lab) [address] [place], [address], 12/01/2021 19:12:20 12/02/19 22 12/01/2021 BASIC METAB OLIC PANEL anion gap 12.7 mmol/ L 14-22 low Not Available [facility] (Lab) [address] [place], [address], 12/01/2021 19:12:20 12/02/19 22 12/01/2021 BASIC METAB OLIC PANEL glucose 186 mg/dL 70-99 high Not Available [facility] (Lab) [address] [place], [address], 12/01/2021 19:12:20 12/02/19 22 12/01/2021 BASIC METAB OLIC PANEL BUN 15 mg/dL 8-19 Not Available [facility] (Lab) [address] [place], [address], 12/01/2021 19:12:20 12/02/19 22 12/01/2021 BASIC METAB OLIC PANEL creatinine 0.70 mg/dL 0.66-1 .25 Not Available [facility] (Lab) [address] [place], [address], 12/01/2021 19:12:20 12/02/19 22 12/01/2021 BASIC METAB OLIC PANEL GFR >60 Refer ence Range : [place] GFR Healt hy Adult : >60 mL/mi n/1.7 3 m2 Chron ic Kidne y Disea se: 15-60 mL/mi n/1.7 3 m2 Kidne y Failu re: <15/m L/min /1.73 m2 www.n iddk. [facility].g ov The MDRD study equat ion has not been valid ated in child madhuri <18 years of age; pregn ant women ; the elder ly >85 years of age; or in some racia l or ethni c subgr oups, such as Hispa nics. Outsi de the valid ated dk eters , estim ated GFR is less accur ate, requi ring clini javier judgm ent on a case- by-ca se basis . Clini javier inter preta tion for other races and ages must be made by the clini shadi. The MDRD study equat ion has not been valid ated for the evalu ation of serum creat inine relat ed to nutri juarez l statu s or medic ation usage . For perso ns <18 years of age, a pedia tric GFR calcu lator is avail able on the [facility] websi te: https ://nalini w.ariel pulido.o rg/pr katherineess ional s/kdo qi/gf r_cal culat or Not Available [facility] (Lab) [address] [place], [address], 12/01/2021 19:12:20 12/02/19 22 12/01/2021 BASIC METAB OLIC PANEL calcium 10.0 mg/dL 8.4-10 .2 Not Available [facility] (Lab) [address] [place], [address], 12/01/2021 19:12:20 04/05/20 23 04/05/2023 CBC/C OMPLE TE BLD COUNT W/DIF F white blood cells 7.1 x10'3 /uL 4.2-10 .8 Not Available [facility] (Lab) [address] [place], [address], 04/05/2023 14:07:56 04/05/2004/05/2023 CBC/C OMPLE TE BLD COUNT W/DIF F red blood cells 4.50 x10'6 /uL 3.80-5 .20 Not Available [facility] (Lab) [address] [place], [address], 04/05/2023 14:07:56 04/05/20 23 04/05/2023 CBC/C OMPLE TE BLD COUNT W/DIF F hemoglobin 15.2 g/dL 12.0-1 5.6 Not Available [facility] (Lab) [address] [place], [address], 04/05/2023 14:07:56 04/05/20 23 04/05/2023 CBC/C OMPLE TE BLD COUNT W/DIF F hematocrit 44.7 % 35.7-4 5.7 Not Available [facility] (Lab) [address] [place], [address], 04/05/2023 14:07:56 04/05/20 23 04/05/2023 CBC/C OMPLE TE BLD COUNT W/DIF F mean red cell volume 99.3 fL 82.0-9 9.0 high Not Available [facility] (Lab) [address] [place], [address], 04/05/2023 14:07:56 04/05/20 23 04/05/2023 CBC/C OMPLE TE BLD COUNT W/DIF F mean red cell hemoglobin 33.8 pg 27.0-3 3.0 high Not Available [facility] (Lab) [address] [place], [address], 04/05/2023 14:07:56 04/05/20 23 04/05/2023 CBC/C OMPLE TE BLD COUNT W/DIF F mean RBC HGB concentratio n 34.0 g/dL 31.0-3 6.0 Not Available [facility] (Lab) [address] [place], [address], 04/05/2023 14:07:56 04/05/20 23 04/05/2023 CBC/C OMPLE TE BLD COUNT W/DIF F red cell distribution width 13.0 % 11.8-1 5.5 Not Available [facility] (Lab) [address] [place], [address], 04/05/2023 14:07:56 04/05/2004/05/2023 CBC/C OMPLE TE BLD COUNT W/DIF F platelets 204 x10'3 /uL 150-40 0 Not Available [facility] (Lab) [address] [place], [address], 04/05/2023 14:07:56 04/05/20 23 04/05/2023 CBC/C OMPLE TE BLD COUNT W/DIF F mean platelet volume 11.9 fL 9.0-12 .4 Not Available [facility] (Lab) [address] [place], [address], 04/05/2023 14:07:56 04/05/20 23 04/05/2023 CBC/C OMPLE TE BLD COUNT W/DIF F neutrophils 54.1 % 39.0-7 2.0 Not Available [facility] (Lab) [address] [place], [address], 04/05/2023 14:07:56 04/05/2004/05/2023 CBC/C OMPLE TE BLD COUNT W/DIF F lymphocytes 23.7 % 16.0-4 7.0 Not Available [facility] (Lab) [address] [place], [address], 04/05/2023 14:07:56 04/05/20 23 04/05/2023 CBC/C OMPLE TE BLD COUNT W/DIF F monocytes 7.8 % 5.0-12 .0 Not Available [facility] (Lab) [address] [place], [address], 04/05/2023 14:07:56 04/05/2004/05/2023 CBC/C OMPLE TE BLD COUNT W/DIF F eosinophils 12.0 % 1.0-7. 0 high Not Available [facility] (Lab) [address] [place], [address], 04/05/2023 14:07:56 04/05/20 23 04/05/2023 CBC/C OMPLE TE BLD COUNT W/DIF F basophils 1.1 % 0.0-2. 0 Not Available [facility] (Lab) [address] [place], [address], 04/05/2023 14:07:56 04/05/2004/05/2023 CBC/C OMPLE TE BLD COUNT W/DIF F immature granulocytes 1.3 % 0.00-0 .50 high Not Available [facility] (Lab) [address] [place], [address], 04/05/2023 14:07:56 04/05/20 23 04/05/2023 CBC/C OMPLE TE BLD COUNT W/DIF F neutrophils, absolute count 3.86 x10'3 /uL 1.5-8. 0 Not Available [facility] (Lab) [address] [place], [address], 04/05/2023 14:07:56 04/05/20 23 04/05/2023 CBC/C OMPLE TE BLD COUNT W/DIF F lymphocytes, absolute count 1.69 x10'3 /uL 1.07-3 .43 Not Available [facility] (Lab) [address] [place], [address], 04/05/2023 14:07:56 09/18/04/05/2023 CBC/C OMPLE TE BLD COUNT W/DIF F monocytes, absolute count 0.56 x10'3 /uL 0.29-0 .99 Not Available [facility] (Lab) [address] [place], [address], 04/05/2023 14:07:56 04/05/20 23 04/05/2023 CBC/C OMPLE TE BLD COUNT W/DIF F eosinophils, absolute count 0.86 x10'3 /uL 0.02-0 .53 high Not Available [facility] (Lab) [address] [place], [address], 04/05/2023 14:07:56 04/05/2004/05/2023 CBC/C OMPLE TE BLD COUNT W/DIF F basophils, absolute count 0.08 x10'3 /uL 0.01-0 .08 Not Available [facility] (Lab) [address] [place], [address], 04/05/2023 14:07:56 04/05/20 23 04/05/2023 CBC/C OMPLE TE BLD COUNT W/DIF F immature granulocytes ,absolute 0.09 x10'3 /uL 0.00-0 .05 high Not Available [facility] (Lab) [address] [place], [address], 04/05/2023 14:07:56 04/05/2004/05/2023 CBC/C OMPLE TE BLD COUNT W/DIF F nucleated red blood cells 0.0 % -0 Not Available [facility] (Lab) [address] [place], [address], 04/05/2023 14:07:56 04/05/2004/05/2023 CBC/C OMPLE TE BLD COUNT W/DIF F NRBC# 0.00 x10'3 /uL Not Available [facility] (Lab) [address] [place], [address], 04/05/2023 14:07:56 04/05/20 23 04/05/2023 URINA LYSIS COMPL ETE/I RIS W/RFX color LIGHT- ORANGE abnormal Not Available [facility] (Lab) [address] [place], [address], 04/05/2023 14:12:42 04/05/20 23 04/05/2023 URINA LYSIS COMPL ETE/I RIS W/RFX appear EXTRA TURBID abnormal Not Available [facility] (Lab) [address] [place], [address], 04/05/2023 14:12:42 04/05/20 23 04/05/2023 URINA LYSIS COMPL ETE/I RIS W/RFX specific gravity 1.015 1.001- 1.030 Not Available [facility] (Lab) [address] [place], [address], 04/05/2023 14:12:42 04/05/20 23 04/05/2023 URINA LYSIS COMPL ETE/I RIS W/RFX pH 5.0 pH_un its 5.0-9. 0 Not Available [facility] (Lab) [address] [place], [address], 04/05/2023 14:12:42 04/05/20 23 04/05/2023 URINA LYSIS COMPL ETE/I RIS W/RFX leukocytes 25 tyrell/u L negati ve- abnormal Not Available [facility] (Lab) [address] [place], [address], 04/05/2023 14:12:42 04/05/20 23 04/05/2023 URINA LYSIS COMPL ETE/I RIS W/RFX nitrite NEGATI VE negati ve- Not Available [facility] (Lab) [address] [place], [address], 04/05/2023 14:12:42 04/05/20 23 04/05/2023 URINA LYSIS COMPL ETE/I RIS W/RFX protein 20 mg/dL negati ve- abnormal Not Available [facility] (Lab) [address] [place], [address], 04/05/2023 14:12:42 04/05/20 23 04/05/2023 URINA LYSIS COMPL ETE/I RIS W/RFX glucose 70 mg/dL normal - abnormal Not Available [facility] (Lab) [address] [place], [address], 04/05/2023 14:12:42 04/05/20 23 04/05/2023 URINA LYSIS COMPL ETE/I RIS W/RFX ketones NEGATI VE mg/dL negati ve- Not Available [facility] (Lab) [address] [place], [address], 04/05/2023 14:12:42 04/05/20 23 04/05/2023 URINA LYSIS COMPL ETE/I RIS W/RFX urobilinogen NORMAL mg/dL normal - Not Available [facility] (Lab) [address] [place], [address], 04/05/2023 14:12:42 04/05/20 23 04/05/2023 URINA LYSIS COMPL ETE/I RIS W/RFX bilirubin NEGATI VE mg/dL negati ve- Not Available [facility] (Lab) [address] [place], [address], 04/05/2023 14:12:42 04/05/20 23 04/05/2023 URINA LYSIS COMPL ETE/I RIS W/RFX blood NEGATI VE mg/dL negati ve- Not Available [facility] (Lab) [address] [place], [address], 04/05/2023 14:12:42 04/05/20 23 04/05/2023 URINA LYSIS COMPL ETE/I RIS W/RFX white blood cells 0-8 /i??h pfi?? 0-8 Not Available [facility] (Lab) [address] [place], [address], 04/05/2023 14:12:42 04/05/20 23 04/05/2023 URINA LYSIS COMPL ETE/I RIS W/RFX red blood cells 0-4 /i??h pfi?? 0-4 Not Available [facility] (Lab) [address] [place], [address], 04/05/2023 14:12:42 04/05/20 23 04/05/2023 URINA LYSIS COMPL ETE/I RIS W/RFX bacteria NONE Not Available [facility] (Lab) [address] [place], [address], 04/05/2023 14:12:42 04/05/20 23 04/05/2023 URINA LYSIS COMPL ETE/I RIS W/RFX mucous OCCASI ONAL /i??l pfi?? abnormal Not Available [facility] (Lab) [address] [place], [address], 04/05/2023 14:12:42 04/05/20 23 04/05/2023 URINA LYSIS COMPL ETE/I RIS W/RFX squamous epithelial MANY /i??l pfi?? abnormal Not Available [facility] (Lab) [address] [place], [address], 04/05/2023 14:12:42 04/05/20 23 04/05/2023 URINA LYSIS COMPL ETE/I RIS W/RFX hyaline cast OCCASI ONAL /i??l pfi?? none seen- abnormal Not Available [facility] (Lab) [address] [place], [address], 04/05/2023 14:12:42 04/05/20 23 04/05/2023 URINA LYSIS COMPL ETE/I RIS W/RFX amorphous crystal OCCASI ONAL /i??h pfi?? abnormal Not Available [facility] (Lab) [address] [place], [address], 04/05/2023 14:12:42 04/05/20 23 04/05/2023 MICRO ALBUM IN RANDO M URINE microalbumin , urine 71.3 mg/L 0.0-16 .6 high Not Available [facility] (Lab) [address] [place], [address], 04/05/2023 14:47:01 04/05/20 23 04/05/2023 VITAM IN D 25-HY DROXY vd25oh 67.4 NG/mL 30-100 Vitam in D Statu s: Defic ient: <20 ng/mL Insuf ficie nt: 20-29 ng/mL Suffi cient : 30-10 0 ng/mL Not Available [facility] (Lab) [address] [place], [address], 04/05/2023 14:54:18 04/05/20 23 04/05/2023 HEMOG LOBIN A1C HA1C 10.6 % 4.0-6. 0 high Diabe shree Scree laura Crite loulou: <5.7% Consi stent with absen ce of diabe shree 5.7-6 .4% Consi stent with incre ased risk for diabe shree (pred iabet es) >OR=6 .5% Consi stent with diabe shree REFER ENCE: Diabe shree Care 2016, 39(Perez ppl.1 ):s13 -s22 Not Available [facility] (Lab) [address] [place], [address], 04/05/2023 15:09:40 04/05/20 23 04/05/2023 TSH W/REF INDIRA FT4 TSH with reflex free T4 5.220 uIU/m L 0.465- 4.680 high Not Available [facility] (Lab) [address] [place], [address], 04/05/2023 15:19:47 04/05/20 23 04/05/2023 T4 FREE free T4 1.28 NG/dL 0.78-2 .19 Not Available [facility] (Lab) [address] [place], [address], 04/05/2023 16:39:20 04/05/20 23 04/05/2023 COMPR EHENS RHONDA METAB OLIC PANEL sodium 135 mmol/ L 137-14 5 low Not Available [facility] (Lab) [address] [place], [address], 04/05/2023 18:13:58 04/05/20 23 04/05/2023 COMPR EHENS RHONDA METAB OLIC PANEL potassium 5.0 mmol/ L 3.5-5. 1 Not Available [facility] (Lab) [address] [place], [address], 04/05/2023 18:13:58 04/05/20 23 04/05/2023 COMPR EHENS RHONDA METAB OLIC PANEL chloride 97 mmol/ L 98-107 low Not Available [facility] (Lab) [address] [place], [address], 04/05/2023 18:13:58 04/05/20 23 04/05/2023 COMPR EHENS RHONDA METAB OLIC PANEL carbon dioxide 30 mmol/ L 22-30 Not Available [facility] (Lab) [address] [place], [address], 04/05/2023 18:13:58 04/05/20 23 04/05/2023 COMPR EHENS RHONDA METAB OLIC PANEL anion gap 13.0 mmol/ L 14-22 low Not Available [facility] (Lab) [address] [place], [address], 04/05/2023 18:13:58 04/05/20 23 04/05/2023 COMPR EHENS RHONDA METAB OLIC PANEL glucose 234 mg/dL 70-99 high Not Available [facility] (Lab) [address] [place], [address], 04/05/2023 18:13:58 04/05/2004/05/2023 COMPR EHENS RHONDA METAB OLIC PANEL BUN 11 mg/dL 8-19 Not Available [facility] (Lab) [address] [place], [address], 04/05/2023 18:13:58 04/05/2004/05/2023 COMPR EHENS RHONDA METAB OLIC PANEL creatinine 0.64 mg/dL 0.66-1 .25 low Not Available [facility] (Lab) [address] [place], [address], 04/05/2023 18:13:58 04/05/20 23 04/05/2023 COMPR EHENS RHONDA METAB OLIC PANEL GFR >60 Refer ence Range : [place] ge GFR Healt hy Adult : >60 mL/mi n/1.7 3 m2 Chron ic Kidne y Disea se: 15-60 mL/mi n/1.7 3 m2 Kidne y Failu re: <15/m L/min /1.73 m2 www.n iddk. nih.g ov The MDRD study equat ion has not been valid ated in child madhuri <18 years of age; pregn ant women ; the elder ly >85 years of age; or in some racia l or ethni c subgr oups, such as Hiswv nics. Outsi de the valid ated dk eters , estim ated GFR is less accur ate, requi ring clini javier judgm ent on a case- by-ca se basis . Clini javier inter preta tion for other races and ages must be made by the clini shadi. The MDRD study equat ion has not been valid ated for the evalu ation of serum creat inine relat ed to nutri juarez l statu s or medic ation usage . For perso ns <18 years of age, a pedia tric GFR calcu lator is avail able on the [facility] websi te: https ://ww w.kid tess.william parikh/jesus ofess ional s/kdo qi/gf r_cal culat or Not Available [facility] (Lab) [address] [place], [address], 04/05/2023 18:13:58 04/05/20 23 04/05/2023 COMPR EHENS RHONDA METAB OLIC PANEL alkaline phosphatase 64 U/L 38-126 Not Available [facility] (Lab) [address] [place], [address], 04/05/2023 18:13:58 04/05/20 23 04/05/2023 COMPR EHENS RHONDA METAB OLIC PANEL alanine aminotransfe rase 28 U/L 0-35 Not Available [facility] (Lab) [address] [place], [address], 04/05/2023 18:13:58 04/05/20 23 04/05/2023 COMPR EHENS RHONDA METAB OLIC PANEL aspartate aminotransfe rase 27 U/L 15-37 Not Available [facility] (Lab) [address] [place], [address], 04/05/2023 18:13:58 04/05/20 23 04/05/2023 COMPR EHENS RHONDA METAB OLIC PANEL bilirubin, total 0.50 mg/dL 0.20-1 .30 Not Available [facility] (Lab) [address] [place], [address], 04/05/2023 18:13:58 04/05/20 23 04/05/2023 COMPR EHENS RHONDA METAB OLIC PANEL calcium 9.8 mg/dL 8.4-10 .2 Not Available [facility] (Lab) [address] [place], [address], 04/05/2023 18:13:58 04/05/20 23 04/05/2023 COMPR EHENS RHONDA METAB OLIC PANEL total protein 7.2 g/dL 6.3-8. 2 Not Available [facility] (Lab) [address] [place], [address], 04/05/2023 18:13:58 04/05/20 23 04/05/2023 COMPR EHENS RHONDA METAB OLIC PANEL albumin 4.5 g/dL 3.0-4. 4 high Not Available [facility] (Lab) [address] [place], [address], 04/05/2023 18:13:58 04/05/20 23 04/05/2023 COMPR EHENS RHONDA METAB OLIC PANEL globulin 2.7 g/dL 2.6-4. 2 Not Available [facility] (Lab) [address] [place], [address], 04/05/2023 18:13:58 04/05/2004/05/2023 COMPR EHENS RHONDA METAB OLIC PANEL A/G ratio 1.7 ratio 1.0-2. 0 Not Available [facility] (Lab) [address] [place], [address], 04/05/2023 18:13:58 04/05/2004/05/2023 MAGNE SIUM magnesium 1.5 mg/dL 1.6-2. 3 low Not Available [facility] (Lab) [address] [place], [address], 04/05/2023 18:14:02 04/05/2004/05/2023 LIPID PANEL cholesterol 148 mg/dL 140-19 9 NIH TAI NSUS RECOM MENDA TION FOR MANOHAR STERO L: ADULT CHILD LOW RISK: <200 <170 BORDE RLINE : <200- 239 ----- HIGH RISK: >240 >200 Not Available [facility] (Lab) [address] [place], [address], 04/05/2023 18:14:11 04/05/2004/05/2023 LIPID PANEL triglyceride s 476 mg/dL 0-150 high NIH TAI NSUS REPOR T RECOM MENDA TION FOR TRIGL YCERI PAULO: ADULT CHILD LOW RISK: <150 ----- BODER LINE: 150-1 99 ----- HIGH RISK: >200 ----- Not Available [facility] (Lab) [address] [place], [address], 04/05/2023 18:14:11 04/05/2004/05/2023 LIPID PANEL HDL cholesterol 39 mg/dL 40- low Not Available [facility] (Lab) [address] [place], [address], 04/05/2023 18:14:11 04/05/2004/05/2023 URIC ACID SERUM uric acid 4.5 mg/dL 2.5-6. 2 Not Available [facility] (Lab) [address] [place], [address], 04/05/2023 18:14:21 11/24/19 22 11/22/2021 CT, abdom en + pelvi s, w/o contr ast No observ ation record ed. MIGRATION. [facility] [address] [place], [address], 09/16/2022 06:47:23 12/17/19 22 12/16/2021 US, duple x, renal arter y No observ ation record ed. [email or web address].[address], [address], 09/16/2022 06:47:23 12/30/19 22 12/16/2021 US, duple x, renal arter y No observ ation record ed. [email or web address] [address], [place], [address], 09/16/2022 06:47:23 09/23/19 23 DEXA, axial skele ton [facility] [address] [place] [address] Talha argueta Name: CRISTIANE BRITO Access ion #: [id number] Sex: F : 1944 5 Locati on: RA2 Attend ing Physic david: CYNTHIA GRECO Orderi Physic david: CYNTHIA GRECO Exam Date: 09/23/19 10:51 AM Exam Name: XR DEXA AXIAL/ HIP/PE LVIS/S PINE Admitt ing Diagno sis(es ): RADIOL OGY REPORT - FINAL EXAM: XR DEXA AXIAL/ HIP/PE LVIS/S PINE HISTOR Y: osteop orosis COMPAR CARLITOS: None. TECHNI QUE: TECHNI QUE: Dual energy x-ray of absorp tion examin ation of the bilate ral hips and lumbar spine in AP projec tion was perfor med. FINDIN GS: Lumbar Spine (L1-L4 ): The mean bone minera l densit y is 1.550 g/cm2 hydrox yapati te, correl ating with a T-scor e of 2.9. Bilate ral hips: The mean bone minera l densit y is 0.898 g/cm2 calciu m hydrox yapati te, correl ating with a T-scor e of -0.9. Page 1 of 2 [facility] Talha argueta Name: CRISTIANE BRITO Access ion #: [id number] Sex: F : 1944 5 Exam Date: 09/23/19 10:51 AM Exam Name: XR DEXA AXIAL/ HIP/PE LVIS/S PINE Admitt ing Diagno sis(es ): IMPRES KARAN: 1. The patien t's lumbar spine T-scor e is consis tent with a normal bone densit y. 2. The patien t's bilate ral hip T-scor e is consis tent with a normal bone densit y. Accord ing to the World Health Organi zation , T-scor e values greate r than -1.0 are normal , values betwee n -1.0 and -2.5 are catego rized as osteop enia, T-scor e of -2.5 or more are catego rized as osteop orosis . Create d and electr onical ly signed by: Gideon brito MD Signed Date: 09/23/19 11:51 AM (CT) Dictat ed by: Gideon brito MD (CT) (CT) Page 2 of 2 [email or web address] [facility] (Imaging) [address] [place], [address], 04/01/2023 14:47:41 Result Notes None recorded. Problems Name Problem SNOMED Code Status Onset Date Resolution Date Notes Provider Name and Address Organization Details Recorded Time Impacted cerumen of bilateral ears 5091363750816 108 Active 2022 Not Available [facility] 3 06:43:07 Cataract 633906188 Active 2021 Not Available [facility] 3 06:43:07 Overweight 898566802 Active 2022 Not Available [facility] 3 06:43:07 Osteoarthr itis of knee 063335485 Active Not Available [facility] 3 06:43:07 Gastroesop hageal reflux disease without esophagiti s 837481339 Active 2022 Not Available [facility] 3 06:43:07 Edema 448151091 Active Not Available [facility] 3 06:43:07 Menopause finding 507737183 Active Not Available [facility] 3 06:43:08 Low back pain 575150135 Active Not Available [facility] 3 06:43:08 Type 2 diabetes mellitus without complicati on 013197489 Active Not Available [facility] 3 06:43:08 Vitamin D deficiency 43297134 Active Not Available [facility] 3 06:43:08 Seasonal allergic rhinitis 100105337 Active 2022 Not Available [facility] 3 06:43:08 Motion sickness 34290492 Active Not Available [facility] 3 06:43:08 Hypertensi ve disorder 09075381 Active 2022 Not Available [facility] 3 06:43:08 Eczema 94856812 Active Not Available [facility] 3 06:43:08 Uncontroll ed type 2 diabetes mellitus 441170443 Active 2020 Not Available [facility] 3 06:43:08 Atrial fibrillati on 30213927 Active Not Available [facility] 3 06:43:08 Hyperlipid emia 15663743 Active Not Available [facility] 3 06:43:08 Fatigue 62524317 Active Not Available [facility] 3 06:43:08 Hypothyroi dism 33658057 Active 2022 Loyd Greco MD [address], [address], [place], [address] , [facility] 3 14:09:48 Hypomagnes emia 857461476 Active 2022 Loyd Greco MD [address], [address], [place], [address] , [facility] 3 14:18:02 Problem Notes None recorded. Procedures Surgical History Date Name Laterality Status Provider Name and Address Organization Details Recorded Time 3 Ear Irrigation completed Loyd Greco MD [address], [address], [place], [address], [facility] 04/20/2023 14:10:17 2 cataract surgery completed Not Available [facility] 09/16/2022 06:39:55 Imaging Results Imaging Date Name Status LastModified by Organiz ation Details LastModified Time 12/16/2021 US, duplex, renal artery completed [id number] 026 [facility] [address], [place], [address], 09/16/2022 06:47:23 11/22/2021 CT, abdomen + pelvis, w/o contrast completed [id number] 026 [facility] [address], [place], [address], 09/16/2022 06:47:23 12/16/2021 US, duplex, renal artery completed [id number] 026 [facility] [address], [place], [address], 09/16/2022 06:47:23 09/22/2022 DEXA, axial skeleton completed [email or web address] [facility] (Imaging) [address], [place], [address], 04/01/2023 14:47:41 Procedure Notes None recorded. Medical Equipment None Reported. Allergies Allergen ID Allergen Name Allergen Category Reaction Reaction Severity Criticality Documentation Date Start Date Code Code System Note Provider Name and Address Organization Details Recorded Time 71420 Zocor medicatio n other Not available Not available 09/16/2022 55671 3 RxNorm leg aches Not Available [facility] 3 06:47:17 93082 Lipitor medicatio n other Not available Not available 09/16/2022 13753 5 RxNorm leg aches Not Available [facility] 3 06:47:17 53155 codeine medicatio n nausea Not available Not available 09/16/2022 2670 RxNorm Not Available [facility] 3 06:47:17 Medications Name Sig Start Date Stop Date Status Note LastModified by Organization Details LastModified Time metformin 500 mg tablet Take 2 tablets twice a day by oral route for 90 days. 10/09 completed Not Available Not Available Not Available ipratropi um 0.5 mg-albute rol 3 mg (2.5 mg base)/3 mL nebulizat ion soln Inhale 3 mL every day by nebuliza tion route. 02/24 completed Not Available Not Available Not Available ofloxacin 0.3 % eye drops 04/01 completed Not Available Not Available Not Available atenolol 100 mg tablet TAKE ONE AND ONE-HALF TABLETS BY MOUTH TWICE DAILY DIRECTED 2023 active Not Available Not Available Not Avai lable hydrocodo ne 5 mg-acetam inophen 325 mg tablet TK 1 TO 2 TS PO Q 6 H PRF SEVERE PAIN 8-10 09/08 completed Not Available Not Available Not Available lisinopri l 20 mg tablet Take 1 tablet BID by oral route for 90 days. active Not Available Not Available No t Available Coumadin 4 mg tablet Take 1 tablet every day by oral route for 90 days. 08/22 completed Not Available Not Available Not Available Debrox 6.5 % ear drops INSTILL 4 DROPS INTO AFFECTED EAR(S) BY OTIC ROUTE 2 TIMES PER DAY active Not Available Not Available No t Available hydralazi ne 25 mg tablet TAKE 1 TABLET BY MOUTH TWICE DAILY 04/01 completed Not Available Not Available Not Available amlodipin e 5 mg tablet Take 1 tablet every day by oral route for 90 days. 05/[address] JOHANNA ANDRADE Not Available Not Available Not Available tramadol 50 mg tablet Take 1 tablet 3 times a day by oral route as needed for 30 days. active Not Available Not Available No t Available Depo-Medr ol 80 mg/mL suspensio n for injection active Not Available Not Available No t Available ketorolac 0.5 % eye drops 04/01 completed Not Available Not Available Not Available prednisol one acetate 1 % eye drops,marisol pension SHAKE LIQUID AND INSTILL 1 DROP TO SURGICAL EYE THREE TIMES DAILY STARTING AFTER SURGERY 04/01 completed Not Available Not Available Not Available magnesium oxide 400 mg (241.3 mg magnesium ) tablet Take 1 tablet every day by oral route as directed for 90 days. 2022 active Not Available Not Available Not Avai lable betametha sone valerate 0.1 % topical cream Apply 1 applicat ion every day by topical route as needed for 90 days. 09/08 completed Not Available Not Available Not Available lidocaine 5 % topical patch APPLY 1 PATCH BY TRANSDER MAL ROUTE ONCE DAILY (MAY WEAR UP TO 12HOURS. ) active Not Available Not Available No t Available gabapenti n 300 mg capsule Take 2 capsules 3 times a day by oral route for 90 days. 05/12 completed PT WAS GIVEN A RX FROM DR ELIDIA TORRES PAIN MANAGEME NT PT ASKED IF WE COULD TAKE OVER REFILL SO ALL MEDICATI ON FROM ONE PROVIDER . Not Available Not Available Not Available omeprazol e 20 mg capsule,d elayed release TAKE ONE CAPSULE BY MOUTH IN THE MORNING active Not Available Not Available No t Available lisinopri l 20 mg-hydroc hlorothia zide 25 mg tablet Take 1 tablet every day by oral route for 90 days. 05/24 completed Not Available Not Available Not Available hydralazi ne 50 mg tablet TAKE ONE TABLET BY MOUTH TWICE A DAY DIRECTED active Not Available Not Available No t Available digoxin 125 mcg (0.125 mg) tablet active Not Available Not Available Not Available furosemid e 20 mg tablet Take 1 tablet every day by oral route as needed. active Not Available Not Available No t Available gabapenti n 100 mg capsule TK 1 C PO TID active Not Available Not Available No t Available Transderm -Scop 1 mg over 3 days transderm al patch Apply 1 patch every 72 hours by transder mal route in the morning for 20 days. 07/18 completed Not Available Not Available Not Available methylpre dnisolone 4 mg tablets in a dose pack FPD 12/15 completed Not Available Not Available Not Available Coumadin 1 mg tablet Take 1 tablet every day by oral route for 90 days. 08/22 completed Not Available Not Available Not Available fluticaso ne propionat e 50 mcg/actua tion nasal spray,marisol pension [place] 2 sprays every day by intranas al route. active Not Available Not Available No t Available metformin ER 500 mg tablet,ex tended release 24 hr Take 2 tablets twice a day by oral route for 90 days. 2022 active Not Available Not Available Not Avai lable amoxicill in 875 mg-potass ium clavulana te 125 mg tablet TK 1 T PO Q 12 H FOR 10 DAYS 02/24 completed Not Available Not Available Not Available rosuvasta tin 20 mg tablet Take 1 tablet every day by oral route at bedtime for 90 days. active Not Available Not Available No t Available metformin ER 1,000 mg tablet,ex tended release 24hr (osmotic) Take 1 tablet every day by oral route for 90 days. 04/01 completed Not Available Not Available Not Available Lantus Solostar U-100 Insulin 100 unit/mL (3 mL) subcutane ous pen Inject 35 units subcutan eous nightly active Not Available Not Available No t Available omeprazol e 20 mg tablet,de layed release Take 1 tablet every day by oral route in the morning for 90 days. 04/01 completed Not Available Not Available Not Available metformin ER 1,000 mg 24 hr tablet,ex tended release (gastric reten.) Take 1 tablet every day by oral route. 12/01 completed Not Available Not Available Not Available Prevnar 13 (PF) 0.5 mL intramusc ular syringe ADM 0.5ML IM UTD active Not Available Not Available No t Available pen needle, diabetic 32 gauge x 32 use as directed 2022 active Not Available Not Available Not Avai lable Xarelto 20 mg tablet Take 1 tablet every day by oral route for 90 days. active Not Available Not Available No t Available Vicodin 5 mg-300 mg tablet TK 1 T PO Q 4 TO 6 H PRN active Not Available Not Available No t Available TRUEplus Lancets 30 gauge TEST BLOOD SUGAR TWICE A DAY active Not Available Not Available No t Available Vascepa 1 gram capsule Take 2 capsules twice a day by oral route after meals for 90 days. 2022 active Not Available Not Available Not Avai lable Fluarix Quad 0107-0008 (PF) 60 mcg (15 mcg x 4)/0.5 mL IM syringe ADM 0.5ML UTD active Not Available Not Available No t Available Fluarix Quad (PF) 60 mcg (15 mcg x 4)/0.5 mL IM syringe INJECT 0.5 ML INTRAMUS CULARLY DIRECTED . 08/22 completed Not Available Not Available Not Available Jardiance 25 mg tablet Take 1 tablet every day by oral route as directed for 90 days. 2022 active Not Available Not Available Not Avai lable True Metrix Glucose Test Strip TEST BLOOD SUGAR TWICE A DAY active Not Available Not Available No t Available Fluzone High-Dose (PF) 180 mcg/0.5 mL intramusc ular syringe ADM 0.5ML IM UTD active Not Available Not Available No t Available Fluzone High-Dose (PF) 180 mcg/0.5 mL intramusc ular syringe ADMINIST ER 0.5ML IN THE MUSCLE DIRECTED 12/09 completed Not Available Not Available Not Available Ozempic 0.25 mg or 0.5 mg (2 mg/1.5 mL) subcutane ous pen injector Inject 0.25mg weekly x 4 weeks then increase to 0.5mg subcutan eous weekly 02/26 completed Not Available Not Available Not Available Fluzone High-Dose 9398-2737 (PF) 180 mcg/0.5 mL intramusc ular syringe ADM 0.5ML IM UTD 02/24 completed Not Available Not Available Not Available Fluzone High-Dose (PF) 180 mcg/0.5 mL intramusc ular syringe ADM 0.5ML IM UTD 02/24 completed Not Available Not Available Not Available Fluad Quad (65yr up)(PF) 60 mcg (15 mcg x 4)/0.5mL IM syringe ADM 0.5ML IM UTD 02/24 completed Not Available Not Available Not Available Ozempic 0.25 mg or 0.5 mg (2 mg/3 mL) subcutane ous pen injector Inject 0.25 mg every week by subcutan eous route as directed for 90 days. 2022 active Not Available Not Available Not Avai lable Vitals Date Recorded Body mass index (BMI) Body height Oxygen saturation Oxygen saturation in Arterial blood by Pulse oximetry Heart rate Respiratory rate Body temperature Body weight Systolic blood pressure Diastolic blood pressure Provider Name and Address Organization Details Last Updated DateTime 3 29.4 kg/m2 162.56 cm 98 % 98 % 75 /min 16 /min 97.2 [degF] 44215.3 g 136 mm[Hg] 88 mm[Hg] Not Available [facility] 3 06:42:07 Date Recorded Oxygen saturation Oxygen saturation in Arterial blood by Pulse oximetry Heart rate Body temperature Body weight Systolic blood pressure Diastolic blood pressure Provider Name and Address Organization Details Last Updated DateTime 2 95 % 95 % 88 /min 96.7 [degF] 04078.7 4 g 146 mm[Hg] 94 mm[Hg] Not Available [facility] 3 06:42:07 Date Recorded Body height Body mass index (BMI) Body weight Heart rate Respiratory rate Oxygen saturation Oxygen saturation in Arterial blood by Pulse oximetry Pain severity - 0-10 verbal numeric rating [Score] - Reported Provider Name and Address Organization Details Last Updated DateTime 3 162.56 cm 29.7 kg/m2 73322.5 3 g 94 /min 20 /min 97 % 97 % 2 Halle Sanchez RN [facility] [employer] [facility] 14:53:48 Date Recorded Body temperature Systolic blood pressure Diastolic blood pressure Provider Name and Address Organization Details Last Updated DateTime 04/01/2023 97.2 [degF] 144 mm[Hg] 82 mm[Hg] Loyd Greco MD [address] [facility] [address], [place], [address], [facility] [employer] [facility] 04/01/2023 14:59:08 Date Recorded Body height Provider Name an d Address Organization Details Last Updated DateTime 04/05/2023 162.56 cm Halle Sanchez RN [facility] [employer] [facility] 04/05/2023 09:38:27 Date Recorded Body height Body mass index (BMI) Body weight Body temperature Heart rate Respiratory rate Oxygen saturation Oxygen saturation in Arterial blood by Pulse oximetry Systolic blood pressure Diastolic blood pressure Provider Name and Address Organization Details Last Updated DateTime 162.56 cm 29.7 kg/m2 93911.5 6 g 98.1 [degF] 82 /min 16 /min 99 % 99 % 138 mm[Hg] 78 mm[Hg] Jack Allen [facility] [employer] [facility] 14:14:38 Social History Question Answer Notes LastModified by Organization Details LastModified Time Tobacco Smoking Status Never Smoker Not Available [facility] 09/16/2022 06:39:44 What Is Your Level Of Alcohol Consumption? None [id number] Information not available 09/16/2022 Are You Blind Or Do You Have Difficulty Seeing? No [id number] Information not available 09/16/2022 In The 14 Days Before Symptom Onset, Have You Had Close Contact With A Laboratory-confi rmed COVID-19 While That Case Was Ill? No [id number] Information not available 09/16/2022 In The 14 Days Before Symptom Onset, Have You Had Close Contact With A Person Who Is Under Investigation For COVID-19 While That Person Was Ill? No [id number] Information not available 09/16/2022 Are You Deaf Or Do You Have Serious Difficulty Hearing? No [id number] Information not available 09/16/2022 What Type Of Diet Are You Following? DIABETIC [id number] Information not available 09/16/2022 What Is Your Occupation? Retired MIGRATION.[id number] [id number] Information not available 09/16/2022 Have There Been Any Changes To Your Family Or Social Situation? No MIGRATION.0301 [id number] Information not available 09/16/2022 Where Do You Live? SingleLevelHouse With Basement [id number].[id number] [id number] Information not available 09/16/2022 Do You Have Any Pets? No [id number].[id number] [id number] Information not available 09/16/2022 What Is Your Relationship Status? [id number].[id number] [id number] Information not available 09/16/2022 Do You Have Smoke And Carbon Monoxide Detectors In Your Home? Yes [id number].[id number] [id number] Information not available 09/16/2022 Are You Passively Exposed To Smoke? No MIGRATION.0301 [id number] Information not available 09/16/2022 Are There Any Smokers In Your House? No MIGRATION.0301 [id number] Information not available 09/16/2022 Have You Recently Traveled Abroad? No MIGRATION.0301 [id number] Information not available 09/16/2022 Sex: Unknown Functional Status Question Answer Note LastModified by Organizat ion Details LastModified Time Do you have difficulty walking or climbing stairs? No [id number] Information not available 09/16/2022 Are you able to walk? YESWOREST [id number].[id number] 026 Information not available 09/16/2022 Do you have difficulty doing errands alone? No just tired [id number] 026 Information not available 09/16/2022 Are you able to care for yourself? No [id number] 026 Information not available 09/16/2022 Do you have difficulty dressing or bathing? No [id number] 026 Information not available 09/16/2022 What is your exercise level? None bad knee [id number].[id number] 026 Information not available 09/16/2022 Mental Status Question Answer Note LastModified by Organizat ion Details LastModified Time Do you have difficulty concentrating, remembering or making decisions? No [id number] Information not available 09/16/2022 Family History Relationship Description Onset Age of this Age Resolved Age Notes LastModified by Organization Details LastModified Time Unspecified Relation Heart disease many family member [id number] Not available 09/16/2022 06:39:57 Medical History No medical history recorded. Gynecological HistoryNo gynecological history recorded. Obstetrics History GPAL:G 0 P 0 0 0 0 Immunizations Vaccine Type Date Status Note Provider Nam e and Address Organization Details Recorded Time Influenza, high-dose, quadrivalent, PF 3 completed Jack nolen [facility] 04/20/2023 17:51:33 COVID-19, mRNA, LNP-S, PF, 30 mcg/0.3 mL dose 1 completed Not Available [facility] 09/16/2022 06:47:10 COVID-19, mRNA, LNP-S, PF, 30 mcg/0.3 mL dose 1 completed Not Available [facility] 09/16/2022 06:47:10 Influenza, split virus, quadrivalent, preservative 9 completed Not Available [facility] 09/16/2022 06:47:10 Influenza, split virus, trivalent, preservative 4 completed Not Available [facility] 09/16/2022 06:47:10 Influenza, split virus, trivalent, preservative 3 completed Not Available [facility] 09/16/2022 06:47:10 pneumococcal polysaccharide PPV23 2 completed Not Available [facility] 09/16/2022 06:47:10 zoster live 1 completed Not Available [facility] 09/16/2022 06:47:10 Influenza, high-dose, trivalent, PF 6 completed Not Available [facility] 09/16/2022 06:47:10 Pneumococcal conjugate PCV 13 5 completed Not Available [facility] 09/16/2022 06:47:11 Influenza, split virus, trivalent, preservative 5 completed Not Available [facility] 09/16/2022 06:47:11 Past Encounters Encounter ID Performer Location Encounter Start Date Encounter Closed Date Diagnosis/Indication Diagnosis SNOMED-CT Code Diagnosis ICD10 Code Diagnosis Note [id number] [facility] [address] [place] [address] y [place]ale [place] [address] 02/24/2021 00:00:00 02/24/2021 12:00:23 [id number] [facility] [place] [address] 11/05/2021 00:00:00 11/05/2021 12:30:55 [id number] [facility] [address] [place] [address] [place] [address] 12/01/2021 00:00:00 12/01/2021 11:22:[id number] [address] 09/15/2022 00:00:00 09/15/2022 12:42:07 [id number] Loyd Greco MD [address] [address] 04/01/2023 14:38:08 04/01/2023 15:39:07 Hypertensive disorder 04677966 I10 Atrial fibrillation 4943 6004 I48.91 Gastroesop hageal reflux disease without esophagitis 785551214 K21.9 Hyperlipidemia 26953689 E78.5 Osteoarthr itis of knee 105142528 M17.9 Type 2 laura betes mellitus without complication 063706711 E11.9 Vitamin D deficiency 347 25269 E55.9 Overweight 684611559 E66 .3 Seasonal a llergic rhinitis 587406994 J30.2 [id number] Loyd Greco MD [address] [address] 04/05/2023 09:12:15 04/05/2023 09:43:11 [id number] Loyd Greco MD [address] [place] [address] 04/20/2023 14:00:41 04/20/2023 15:22:05 Hypertensive disorder 00799229 I10 Atrial fibrillation 4943 6004 I48.91 Gastroesop hageal reflux disease without esophagitis 404598989 K21.9 Hyperlipidemia 67324550 E78.5 Osteoarthr itis of knee 286167789 M17.9 Type 2 laura betes mellitus without complication 058576877 E11.9 Vitamin D deficiency 347 94161 E55.9 Improved Overweight 194746908 E66 .3 Seasonal a llergic rhinitis 937606374 J30.2 Hypothyroidism 13817571 E03.9 Hypomagnesemia 687172634 E83.42 Administra tion of influenza vaccine 17112780 Z23 Impacted c erumen of bilateral ears 9133396628 627441 H61.23 Health Concerns Section Related Observation LastModified by Organization Detai ls LastModified Time None Recorded Concern Status LastModified by Organization Details LastModified Time None Recorded Advance Directives Directive None Recorded Payers Encounter Date Sequence Insurance Name Policy Number Policy Shannon Covered Member ID Shannon Member ID Guarantor Name 04/01/2023 1 MEDICARE B: [employer] MEDICARE Cristiane Brito [id number] Cristiane Brito 04/01/[address] [facility] 63 Cristiane Brito [id number] Cristiane Brito 04/05/2023 1 MEDICARE B: [employer] MEDICARE Cristiane Brito [id number] Cristiane Brito 04/05/[address] [facility] 63 Cristiane Brito [id number] Cristiane Brito 04/20/2023 1 MEDICARE B: [employer] MEDICARE Cristiane Brito [id number] Cristiane Brito 04/20/[address] [facility] Dwolla [facility] 63 Cristiane Brito [id number] Cristiane Brito Notes Date Note Type Note Provider Name and Address Organization Details Recorded Time 04/01/2023 text/html Pt is here for f/u on her annual labs, meds and chronic conditions. Doing overall well. Denies any other concern. Pt has not gone for any labs yet. Pt doesn't like to doctor's office at all.Pt is f/u with Cardio at [facility] and she is on high dose of Atenolol for her A fib. Lody Greco MD [address] [facility], [facility] [address], [place], [address], [place] 04/01/2023 15:37:45 04/20/2023 text/html Pt is here for f/u on her annual labs and chronic conditions. Doing overall well. Denies any other concern. Pt doesn't like to come to doctor's office at all.Pt is f/u with Cardio at [facility] and she is on high dose of Atenolol for her A fib. Loyd Greco MD [address], [facility] [address], [place], [address], [place] 04/20/2023 15:17:17 OBGyn Episode No OBEpisode recorded.
--- OUTSIDE RECORDS SUMMARY | 2024-09-11 08:19 | XMS_ITS | Clinical Summary ---
Author Organization [facility] Address [address] [place] [address] Care Team Providers Care Binding Nicker Name Role Phone Rodger Davida VAZQUEZ Primary Care Provider [phone] Allergies No known active allergies Medications digoxin 0.125 MG tablet Take 125 mcg by mouth daily. 10/21/2018 Active rivaroxaban 20 MG Tab tablet Take 20 mg by mouth daily. 10/06/2018 Active omeprazole 20 MG capsule Take 20 mg by mouth daily. 02/06/2019 Active rosuvastatin 20 MG tablet Take 20 mg by mouth nightly at bedtime. 02/25/2019 Active TURMERIC OR Take 1 capsule by mouth daily. Active Cinnamon 500 MG capsule Take 1,000 mg by mouth daily. Active multi vitamin/mineral s tablet Take 1 tablet by mouth daily. Active diphenhydrAMINE -APAP 25-500 MG Tab tablet Take 2 tablets by mouth nightly as needed. Active metFORMIN 500 MG tablet Take 1,000 mg by mouth daily with breakfast. Active Glucosamine 500 MG Cap Take 1,000 mg by mouth daily. Active atenolol 100 MG tablet Take 150 mg by mouth 2 (two) times daily. 09/23/2021 Active LANTUS SOLOSTAR 100 UNIT/ML injection (PEN) Inject 28 Units into the skin nightly at bedtime. 09/23/2021 Active lisinopril 20 MG tablet Take 20 mg by mouth 2 (two) times a day. Active fluticasone propionate 50 MCG/ACT nasal spray 1 spray by Each Nostril route nightly at bedtime. 10/01/2021 Active hydrALAZINE 25 MG tablet Take 25 mg by mouth 2 (two) times daily. 11/05/2021 Active Active Problems Problem Noted Date Diagnosed Date Motion sickness 11/24/2021 Eczema 07/02/2019 Fatigue 07/02/2019 Low back pain 07/02/2019 Osteoarthritis of knee 07/02/2019 Symptomatic menopausal or female climacteric sta shree 07/02/2019 Benign paroxysmal positional vertigo 05/10/2019 Gastroesophageal reflux disease 05/10/2019 Class 1 obesity due to exces s calories with serious comorbidity and body mass index (BMI) of 30.0 to 30.9 in adult 05/10/2019 Type 2 diabetes mellitus wit h hyperglycemia, without long-term current use of insulin ([facility]) 05/10/2019 Type 2 diabetes mellitus wit hout complication ([facility]) 05/10/2019 Vitamin D deficiency 05/10/2019 Dehydration 05/09/2019 Hyponatremia 03/30/2019 Dizziness 03/30/2019 Cardiomyopathy ([facility]) 10/06/2018 Overview (05/10/2019): Last Assessment & Plan: LV dysfunction is very mild and may improve with better control of heart rate. Hyperlipidemia 02/02/2017 Overview (05/10/2019): Last Assessment & Plan: On chronic lipid lowering therapy with good control. No changes made. Atrial fibrillation ([facility]) 02/01/2017 Overview (05/10/2019): Last Assessment & Plan: Rate is controlled and she is anticoagulated. Essential hypertension 02/01/2017 Overview (05/10/2019): Last Assessment & Plan: Blood pressure is adequately controlled on current regimen. No change was made. Social History Tobacco Use Types Packs/Day Years Used Date Smoking Tobacco: Never Smokeless Tobacco: Never Alcohol Use Standard Drinks/Week Comments Yes 0 (1 standard drink = 0.6 oz pur e alcohol) socially Comments No Sex and Gender Information Value Date Recorded Sex Assigned at Not on file Legal Sex Female 8:03 PM CDT Gender Identity Not on file Sexual Orientation Not on file Last Filed Vital Signs Vital Sign Reading Time Taken Comments Blood Pressure 168/89 11/24/2021 2:28 PM CDT Pulse 75 11/24/2021 2:28 PM CDT Temperature 36.1 C (97 F) 11/24/2021 2:28 PM CDT Respiratory Rate 18 11/24/2021 2:28 PM CDT Oxygen Saturation 97% 11/24/2021 2:28 PM CDT Inhaled Oxygen Concentration - - Weight 77.9 kg (171 lb 11.8 oz) 11/24/2021 5:17 AM CDT Height 163.8 cm (5' 4.5 ) 11/23/2021 1:00 AM CDT Body Mass Index 29.02 11/23/2021 1:00 AM CDT Plan of Treatment Health Maintenance Due Date Last Done Comments Kidney Health Evaluation 1945 Diabetes: Retinopathy Eye Exam 1963 Hepatitis C 1963 DTaP, Tdap and Td Vaccines (1 - Tdap) 01/18/1964 Annual Medicare Wellness Visit 2010 Dexa Scan (General) 2010 Zoster Vaccines (2 of 3) 03/25/2011 01/28/2011 RSV Immunization or 60+ Years (1 - 1-dose 75+ series) 01/18/2020 Lipid Panel 02/04/2022 02/04/2021, 02/14/2019 Hemoglobin A1C 05/27/2022 11/24/2021, 05/11/2019 COVID-19 Vaccine ( season) 2024 05/19/2021, 10/11/2020, 09/20/2020 Influenza Adult (#1) 2024 05/15/2019, 04/27/2018, 05/04/2017, Additional history exists Pneumococcal Vaccine: 65+ Years Completed 05/26/2015, 07/23/2011 Meningococcal B Vaccine Aged Out No l onger eligible based on patient's age to complete this topic Meningococcal Vaccine Aged Out No nadir ashia eligible based on patient's age to complete this topic RSV Immunizations Under 20 Months Aged Out No longer eligible based on patient's age to complete this topic Goals Goal Patient Goal Type Associated Problems Recent Progress Patient-Stated? Author Health - patient able to perform ADLs independently General No Lynn Nolasco dairy quality assurance officer Procedure Name Priority Date/Time Associated Diagnosis Comments HEMOGLOBIN, GLYCOSYLATED Routine 11/24/2021 6:30 AM CDT from Last 3 Months or Most Recently Relevant to Health Maintenance Results * (ABNORMAL) HEMOGLOBIN, GLYCOSYLATED (11/24/2021 6:30 AM CDT) HGB A1C 7.8(H) <5.7 % 11/24/2021 7:44 AM CDT [facility] Comment: INCREASED RISK OF DIABETES <5.7% NON-DIABETES 5.7-6.4% INCREASED RISK FOR FUTURE DIABETES > OR = 6.5 CONSISTENT WITH DIABETES STANDARDS OF MEDICAL CARE IN DIABETES-2010 DIABETES CARE, 33(SUPP 1): S1-S61,2010 ESTIMATED AVG GLUCOSE 177 mg/dL 11/24/2021 7:44 AM CDT [facility] 11/24/2021 6:30 AM CDT Domoniqueelizabet Osorio MD LABORATORY Final Result [facility] [address] [place] [address], from Last 3 Months or Most Recently Relevant to Health Maintenance Insurance [employer] MEDICARE [facility] [employer] Advance Directives * Full Code (Latest Code Status on File) Date Activated Date Inactivated Comments 11/23/2021 3:18 PM 11/24/2021 6:20 PM * Full Code Date Activated Date Inactivated Comments 05/09/2019 11:17 PM 05/10/2019 10:09 PM * Full Code Date Activated Date Inactivated Comments 03/30/2019 4:50 PM 04/01/2019 2:58 PM Care Teams Binding Nicker Relationship Specialty Start Date End Date Davida Soares NP [address] [place] [address] PCP - General NURSE PRACTITIONER 03/30/19
[2024-09-11 12:19] LABS: Anion Gap 9 mmol/L (4-12); Blood Urea Nitrogen 17 mg/dL (7-17); Calcium 9.7 mg/dL (8.4-10.2); Carbon Dioxide 31 mmol/L (22-30); Chloride 98 mmol/L (98-107); Estimated Glomerular Filt Rate > 60; Glucose 176 mg/dL (65-110); Potassium 4.6 mmol/L (3.4-5.0); Sodium 138 mmol/L (137-145)
[2024-09-11 12:51] LABS: Hemoglobin A1C 9.1 % (<5.7)
== END 2024-09-11 08:09 | disposition home or self-care (01) ==
PROVIDERS: PCP Internal Medicine; Visit Provider Clinical Nurse Specialist
DX: E11.65 Type 2 diabetes mellitus with hyperglycemia (principal); Z79.4 Long term (current) use of insulin
CPT/HCPCS: 36415; 80048; 83036

== ENCOUNTER 2024-10-23 13:53 | Outpatient (CLI) | payer MEDICARE, SELFPAY ==
--- NOTE | ~2024-10-23 | XR_ITS ---
EXAMINATION: XR chest 2V 10/23/2024 14:35 INDICATION: Cough PROCEDURE: 2 view chest COMPARISON: 08/30/2018 FINDINGS: The lungs are clear. There is chronic left perihilar atelectasis/scarring. No The cardiomed iastinal silhouette is within normal limits. There are no pleural effusions. There is no pneumothor ax suspected. IMPRESSION: 1: NO ACUTE CARDIOPULMONARY DISEASE. Reviewed, dictated and finalized at location A.
== END 2024-10-23 13:54 | disposition home or self-care (01) ==
LOC: GOSHIMG 13:53
PROVIDERS: PCP Clinical Nurse Specialist; Visit Provider Clinical Nurse Specialist
DX: R05.9 Cough, unspecified (principal); R07.89 Other chest pain
CPT/HCPCS: 71046

== ENCOUNTER 2025-01-18 08:34 | Outpatient (CLI) | payer MEDICARE, SELFPAY ==
--- OUTSIDE RECORDS SUMMARY | 2025-01-18 08:37 | XMS_ITS | Clinical Summary ---
Author Organization [facility] Address [address] [place] [address] Care Team Providers Care Steam Station Supervisor Name Role Phone Felisa Wilks NP Primary Care Provider Allergies Active Allergy Reactions Criticality Noted Date [...] mg oral 2 times daily, Reported on 12/04/2024 LANTUS 100 unit/mL (3 mL) pen for [...] Active Problems Problem Noted Date Diagnosed Date Atypical chest pain 12/04/2024 Chronic anticoagulation 04/21/2022 H/O cardiomyopathy 04/21/2022 Mixed [...] level. Assessment & Plan (05/26/2019 4:06 PM TELEPHONE ADVICE NURSE): Rate is a little fast. Will resume [...] made. Assessment & Plan (05/26/2019 4:07 PM TELEPHONE ADVICE NURSE): Since the discontinuation of hydrochlorothiazide, blood pressure [...] her reduced dosage of 10 mg daily. Encounters Date Type Department Care Team Description 12/04/2024 10:45 AM CDT Office Visit [facility] Medical Group Cardiology at [address] [place] [address] Darien Mayen MD Chronic atrial fibrillation (Primary Dx); Hypertension associated with diabetes (HCC); Mixed diabetic hyperlipidemia associated with type 2 diabetes mellitus (HCC); Chronic anticoagulation; Atypical chest pain 12/04/2024 Telephone [facility] Cardiology [address] [place] [address] Darien Mayen MD from Last 3 Months Immunizations Immunization Administration Dates Next Due Pfizer SARS-CoV-2 Monovalent Vaccination (12+ Yrs) PURPLE 10/11/2020,09/20/2020 Medical History Medical History Date Comments Atrial fibrillation (HCC) Hyperlipidemia Family History Medical History Relation [...] drink = 0.6 oz pur e alcohol) Comments Unknown Sex and Gender Information Value Date Recorded Sex Assigned at Not on file Legal Sex Female 1:59 AM TELEPHONE ADVICE NURSE Gender Identity Not on file Sexual Orientation Not on file Obstetrics History Last Filed Vital Signs Vital Sign Reading Time Taken Comments Blood Pressure 140/96 12/04/2024 10:40 AM CDT Pulse 82 12/04/2024 10:40 AM CDT Temperature 36.7 C (98 F) 05/11/2019 12:11 PM CDT Respiratory Rate 16 05/11/2019 12:11 PM CDT Oxygen Saturation 94% 12/04/2024 10:40 AM CDT Inhaled Oxygen Concentration - - Weight 79.8 kg (176 lb) 12/04/2024 10:40 AM CDT Height 162.6 cm (5' 4) 12/04/2024 10:40 AM CDT Body Mass Index 30.21 12/04/2024 10:40 AM CDT Plan of Treatment Health Maintenance Due Date Last Done Comments Albumin Creatinine Ratio, Urine 1945 Depression Screening 1945 Fall Risk Assessment 1945 Dilated Eye Exam 1945 Foot Exam 1945 DTaP/Tdap/Td Vaccine (1 - Tdap) 01/18/1956 Hepatitis B Screening 1963 Well Visit 65+ 2010 Zoster Vaccine (2 of 3) 03/25/2011 01/28/2011 Hemoglobin A1C 11/10/2019 05/11/2019 eGFR 05/11/2020 05/11/2019 Covid-19 Vaccine (3 - 2023-2 5 season) 2024 10/11/2020, 09/20/2020 Osteoporosis Screening-Bone Density Scan 09/22/2024 09/22/2022 Lipid Panel 11/01/2024 11/02/2023, 05/19, 05/25/2023, Additional history exists Influenza Vaccine (#1) 2025 9, 05/15/2019, 04/27/2018, Additional history exists Pneumococcal vaccine 65+ Completed [...] LAB Blood 11/02/2023 10:0 4 AM CDT Irene Provider LAB BLOOD ORDERABLES Kelli mayberry Result Performing Organization Address City/[facility]/ZIP Co de Phone Number EXTERNAL LAB * eGFR (05/11/2019 6:06 AM CDT) eGFR 89 mL/min/1.7 3 m2 [facility] Comment: Interpretive Data Reference Interval Normal >/= 90 mL/min/1.73m2 Mildly decreased* 60 - 89 mL/min/1.73m2 Mildly to moderately decreased 45 - 59 mL/min/1.73m2 Moderately to severely decreased 30 - 44 mL/min/1.73m2 Severely decreased 15 - 29 mL/min/1.73m2 Kidney Failure < 15 mL/min/1.73m2 *Relative to young adult level If -Czech multiply value by 1.16. Estimated glomerular filtration [...] ORDERABLES Fin al Result Performing Organization Address [facility]/ZIP Co de Phone Number [facility] [address] Department [place] [address] * (ABNORMAL) Hemoglobin A1c (05/11/2019 6:06 AM CDT) Hgb A1C 9.2(H) 4.0 - 5.6 % [facility] Estimated Average Glucose 217 mg/dL [facility] Comment: The ADA recommends reporting an estimated Average Glucose (eAG) with all Hemoglobin A1c results using the equation derived from a study of 507 normal and diabetic adults. Minority populations were underrepresented and children were not included. (Diabetes Care 31:2281-6662, 2008). The eAG is not equivalent to a fasting glucose. Blood specimen (specimen) 05/11/2019 6:06 AM CDT 05/11/2019 7:00 AM CDT us Tam Milton MD LAB BLOOD ORDERABLES Fin al Result [facility] [address] Department [place] [address] from Last 3 Months or Most Recently Relevant to Health Maintenance Insurance [facility] MEDICARE ADVANTAGE Advance Directives For more information, please contact: [phone] * Full Code (Latest Code Status on File) Date Activated Date Inactivated Comments 05/10/2019 8:28 PM 05/11/2019 9:13 PM Care Teams Steam Station Supervisor Relationship Specialty Start Date End Date Felisa Wilks NP [address] [place] [address] PCP - General Cardiovascular Disease 12/04/24
--- OUTSIDE RECORDS SUMMARY | 2025-01-18 08:37 | XMS_ITS | Referral Summary ---
Author Organization [facility] D Address [address] [place] [address] Care Team Providers Care Volunteer Specialist Name Role Phone Felisa Wilks NP Primary Care Provider Encounters Date Type Department Care Team Description 12/04/2024 Telephone [facility] Medical Group Cardiology [address] [facility] [address] [place] [address] Darien Mayen MD 12/04/2024 10:45 AM CDT Office Visit [facility] Medical Group Cardiology at [address] [place] [address] Darien Mayen MD Chronic atrial fibrillation (Primary Dx); Hypertension associated with diabetes (HCC); Mixed diabetic hyperlipidemia associated with type 2 diabetes mellitus (HCC); Chronic anticoagulation; Atypical chest pain from Last 3 Months Allergies Active Allergy Reactions Criticality Noted Date [...] Units total) by mouth once a week 10/21/201 9 Active multivitamin tabletIndicatio ns:Vitamin Deficiency Prevention [...] level. Assessment & Plan (05/26/2019 4:06 PM PUBLIC WORKS TECHNICIAN): Rate is a little fast. Will resume [...] made. Assessment & Plan (05/26/2019 4:07 PM PUBLIC WORKS TECHNICIAN): Since the discontinuation of hydrochlorothiazide, blood pressure [...] on file Legal Sex Female 1:59 AM PUBLIC WORKS TECHNICIAN Gender Identity Not on file Sexual Orientation [...] 12/04/2024 10:40 AM CDT Plan of Treatment Not on [...] CDT Historical Provider LAB BLOOD ORDERABLES Kelli jefe Result Performing Organization Address City/[facility]/ZIP Co de Phone Number EXTERNAL LAB * eGFR (05/11/2019 6:06 AM CDT) eGFR 89 mL/min/1.7 3 m2 [facility] Comment: Interpretive Data Reference Interval Normal >/= 90 mL/min/1.73m2 Mildly decreased* 60 - 89 mL/min/1.73m2 Mildly to moderately decreased 45 - 59 mL/min/1.73m2 Moderately to severely decreased 30 - 44 mL/min/1.73m2 Severely decreased 15 - 29 mL/min/1.73m2 Kidney Failure < 15 mL/min/1.73m2 *Relative to young adult level If -Afghan multiply value by 1.16. Estimated glomerular filtration [...] ORDERABLES Fin al Result Performing Organization Address City/[facility]/ZIP Co de Phone Number [facility] [address] Department [place] [address] * (ABNORMAL) Hemoglobin A1c (05/11/2019 6:06 AM CDT) Hgb A1C 9.2(H) 4.0 - 5.6 % [facility] Estimated Average Glucose 217 mg/dL [facility] Comment: The ADA recommends reporting an estimated Average Glucose (eAG) with all Hemoglobin A1c results using the equation derived from a study of 507 normal and diabetic adults. Minority populations were underrepresented and children were not included. (Diabetes Care 31:0246-7103, 2008). The eAG is not equivalent to a fasting glucose. Blood specimen (specimen) 05/11/2019 6:06 AM CDT 05/11/2019 7:00 AM CDT Tam Milton MD LAB BLOOD ORDERABLES Fin al Result Performing Organization Address City/State/[facility] Co de Phone Number [facility] [address] Department [place] [address] from Last 3 Months or Most Recently Relevant to Health Maintenance Insurance [facility] MEDICARE ADVANTAGE [facility] MEDICARE Address: [facility] [address] [place] [address] Advance Directives For more information, please contact: [phone] * Full Code (Latest Code Status on File) Date Activated Date Inactivated Comments 05/10/2019 8:28 PM 05/11/2019 9:13 PM Care Teams Volunteer Specialist Relationship Specialty Start Date End Date Felisa Wilks NP [address] [place] [address] PCP - General Cardiovascular Disease 12/04/24
--- OUTSIDE RECORDS SUMMARY | 2025-01-18 08:37 | XMS_ITS | Clinical Summary ---
Author Organization [facility] Address [address] [place] [address] Phone Care Team Providers Care Cut In Station Operator Name Role Phone Davida Soares NP Primary Care Provider [phone] Allergies Active Allergy Reactions Criticality Noted Date Comments Codeine 07/02/2019 Atorvastatin Myopathy 07/02/2019 Simvastatin Myopathy 07/02/2019 Medications atenolol (TENORMIN) 100 MG tablet Take 150 mg by mouth 2 times daily 9 Active cholecalciferol (D3-50) 1.25 MG (07577 UT) capsule Take 50,000 Units by mouth 9 Active digoxin (LANOXIN) 125 MCG tablet Take 125 mcg by mouth daily 9 Active lisinopril (PRINIVIL,ZESTR IL) 20 MG tablet Take 20 mg by mouth 2 times daily 9 Active metFORMIN (GLUMETZA) 500 MG 24 hr tablet Take 500 mg by mouth 2 times daily Active rivaroxaban (XARELTO) 20 MG tablet daily 9 Active rosuvastatin (CRESTOR) 20 MG tablet daily 2 Active omeprazole (PriLOSEC) [address] capsule 1 capsule daily 2 Active Multiple Vitamins-Minera ls (MULTI VITAMIN/MINERAL S) tablet Take 1 tablet by mouth Active fluticasone (FLONASE) 50 MCG/ACT nasal spray fluticasone propionate 50 mcg/actuation nasal spray,suspension 2 Active hydrALAZINE (APRESOLINE) 50 MG tablet 2 Active Lantus SoloStar 100 UNIT/ML injection 2 Active TRUEplus Pen [place] 32G X 4 MM misc 2 Active ketorolac (ACULAR) 0.5 % ophthalmic solution 2 Active ofloxacin (OCUFLOX) 0.3 % ophthalmic solution 2 Active prednisoLONE acetate (PRED FORTE) 1 % ophthalmic suspension SHAKE LIQUID AND INSTILL 1 DROP TO SURGICAL EYE THREE TIMES DAILY STARTING AFTER SURGERY 2 Active Active Problems Problem Noted Date Diagnosed [...] increase lisinopril to 20 mg b.i.d.. Immunizations Immunization Administration Dates Next Due Influenza Split High [...] 0.6 oz pur e alcohol) occassional use Comments Unknown Sex and Gender Information Value Date Recorded Sex Assigned at Not on file Legal Sex Female 7:53 PM [facility] Gender Identity Not on file Sexual Orientation [...] 10:54 AM CDT Height 160 cm (5' 3) 04/02/2022 10:54 AM CDT Body Mass Index 30.68 04/02/2022 10:54 AM CDT Plan of Treatment Health Maintenance Due Date Last Done Comments COVID-19 Vaccine ( season) 2024, 09/20/2020 Influenza Vaccine (Season Ended) 2025 05/27/2015, 05/26/2014, 05/25/2013 Pneumococcal PPSV23/PCV13 65 + Years / Low and Medium Risk Completed 05/27/2015, 07/23/2011 Insurance MEDICARE [facility]ROAD [facility] Care Teams Cut In Station Operator Relationship Specialty Start Date End Date Davida Soares NP [facility] [place] [address] PCP - General Internal Medicine 06/26/19
--- OUTSIDE RECORDS SUMMARY | 2025-01-18 08:38 | XMS_ITS | Data Portability ---
Author Organization [place] [facility] Zhilian Zhaopin, Main Office Address [address] [place] [address] Care Team Providers Care Ehs Teacher Name Role Phone CYNTHIA GRECOH Primary Care Provider Assessment Encounter Date Assessment Date Assessment LastModified [...] precautions explained. Cont f/u with Cardio at [facility] as per schedule. Cont f/u with Ophtho as per schedule. HM: WWE - Long time ago. Pt declined. Mammo - Pt declined. Colonoscopy - Pt declined. DEXA - 09/22/22, normal. Flu - Pt declined. Tdap, Pneumo, Shingrix - At pharmacy/[facility]. F/u in few weeks. B/l ear flushing on next visit. Annual labs in 09/11. [email or web address] Not available 04/01/2023 15:37:14 04/20/2023 04/20/2023 78 [...] precautions explained. Cont f/u with Cardio at [facility] as per schedule. Cont f/u with Ophtho [...] before next visit. Annual labs in 04/11. [email or web address] Not available 04/20/2023 15:15:51 Plan of Treatment Reminders Order Date Submit Date Provider Last Modified By Organization Details Last Modified Time Details Appointments None recorded. Lab magnesium, serum or plasma 2022 023 [email or web address] [facility] (Lab), [address] [place], [address], 3 09:38:49 lipid panel, serum 2022 023 [email or web address] [facility] (Lab), [address] [place], [address], 3 09:38:48 glycohemogl obin, total, blood 2022 023 [email or web address] [facility] (Lab), [address] [place], [address], 3 09:38:48 TSH, serum or plasma 2022 023 [email or web address] [facility] (Lab), [address] [place], [address], 3 09:38:48 uric acid, serum or plasma 2022 023 [facility] (Lab), [address] [place], [address], 3 18:14:21 CBC w/ auto diff 2022 023 [facility] (Lab), [address] [place], [address], 3 14:07:56 CMP, serum or plasma 2022 023 [facility] (Lab), [address] [place], [address], 3 18:13:58 urinalysis complete, reflex culture [address] (Lab), [address] [place], [address], 3 08:47:21 TSH, serum or plasma 2022 023 [facility] (Lab), [address] [place], [address], 3 15:19:48 lipid panel, serum 2022 023 [facility] (Lab), [address] [place], [address], 3 18:14:11 vitamin D, 25-hydroxy, total, serum [address] (Lab), [address] [place], [address], 3 08:47:21 glycohemogl obin, total, blood 2022 023 [facility] (Lab), [address] [place], [address], 3 15:09:40 microalbumi n, urine 2022 023 [facility] (Lab), [address] [place], [address], 3 14:47:01 magnesium, serum or plasma 2022 023 [facility] (Lab), [address] [place], [address], 3 18:14:02 Referral None recorded. Procedures None recorded. Surgeries None recorded. Imaging None recorded. Medication Orders atenolol 100 mg tablet 2022 023 [facility], [address], [place], [place], [id number], 14:38:33 hydralazine 50 mg tablet 2022 023 [facility], [address], [place], [place], [id number], 14:38:26 lisinopril 20 mg tablet 2022 023 [facility], [address], [place], [place], [id number], 3 14:38:33 magnesium oxide 400 mg (241.3 mg magnesium) tablet 2022 023 [facility], [address], [place], [place], [id number], 14:38:30 rosuvastati n 20 mg tablet 2022 [facility], [address], [place], [place], [id number], 14:38:24 fluticasone propionate 50 mcg/actuati on nasal spray,suspe nsion 2022 [facility], [address], [place], [place], [id number], 14:38:32 omeprazole 20 mg capsule,del ayed release 2022 [facility], [address], [place], [place], [id number], 14:38:28 Xarelto 20 mg tablet 2022 [facility], [address], [place], [place], [id number], 14:38:28 metformin ER 500 mg tablet,exte nded release 24 hr 2022 [facility], [address], [place], [place], [id number], 14:38:31 Vascepa 1 gram capsule 2022 [facility], [address], [place], [place], [id number], 3 14:38:35 Lantus Solostar U-100 Insulin 100 unit/mL (3 mL) subcutaneou s pen 2022 [facility], [address], [place], [place], [id number], 3 14:38:26 Jardiance 25 mg tablet 2022 023 [facility], [address], [place], [place], [id number], 3 14:38:24 Ozempic 0.25 mg or 0.5 mg (2 mg/3 mL) subcutaneou s pen injector 2022 023 [facility], [address], [place], [place], [id number], 3 14:38:30 atenolol 100 mg tablet 2022 023 [facility], [address], [place], [place], [id number], 3 15:05:25 hydralazine 50 mg tablet 2022 023 [facility], [address], [place], [place], [id number], 3 15:05:21 lisinopril 20 mg tablet 2022 023 [facility], [address], [place], [place], [id number], 3 15:05:25 fluticasone propionate 50 mcg/actuati on nasal spray,suspe nsion 2022 023 [facility], [address], [place], [place], [id number], 3 15:05:23 rosuvastati n 20 mg tablet 2022 023 [facility], [address], [place], [place], [id number], 3 15:05:21 omeprazole 20 mg capsule,del ayed release 2022 023 [facility], [address], [place], [place], [id number], 3 15:05:19 metformin ER 500 mg tablet,exte nded release 24 hr 2022 023 [facility], [address], [place], [place], [id number], 3 15:05:23 Xarelto 20 mg tablet 2022 023 [facility], [address], [place], [place], [id number], 3 15:05:26 Patient TargetsNo targets recorded. Patient [...] ----- HIGH RISK: >240 >200 Not Available [facility] (Lab) [address] [place], [address], 11/05/2021 19:54:54 11/06/19 22 11/05/2021 LIPID PANEL triglyceride s 361 mg/dL 0-150 high NIH TAI NSUS REPOR T RECOM MENDA TION FOR TRIGL YCERI PAULO: ADULT CHILD LOW RISK: <150 ----- BODER LINE: 150-1 99 ----- HIGH RISK: >200 ----- Not Available [facility] (Lab) [address] [place], [address], 11/05/2021 19:54:54 11/06/19 22 11/05/2021 LIPID PANEL HDL cholesterol 38 mg/dL 40- low Not Available [facility] (Lab) [address] [place], [address], 11/05/2021 19:54:54 11/06/19 22 11/05/2021 LIPID PANEL [...] WILL NOT BE REPOR CHRISTIANNE. Not Available [facility] (Lab) [address] [place], [address], 11/05/2021 19:54:54 11/06/19 22 11/05/2021 HEMOG LOBIN A1C HA1C 7.9 % 4.0-6. 0 high Diabe shree Scree laura Crite loulou: <5.7% Consi stent with absen ce of diabe shree 5.7-6 .4% Consi stent with incre ased risk for diabe shree (pred iabet es) >OR=6 .5% Consi stent with diabe shree REFER ENCE: Diabe shree Care 2016, 39(Perez ppl.1 ):s13 -s22 Not Available [facility] (Lab) [address] [place], [address], 11/05/2021 21:08:35 11/06/19 22 11/05/2021 MICRO ALBUM IN RANDO M URINE microalbumin , urine 95.4 mg/L 0.0-16 .6 high Not Available [facility] (Lab) [address] [place], [address], 11/05/2021 20:07:11 11/06/19 22 11/05/2021 BASIC METAB OLIC PANEL sodium 134 mmol/ L 137-14 5 low Not Available [facility] (Lab) [address] [place], [address], 11/05/2021 19:55:24 11/06/19 22 11/05/2021 BASIC METAB OLIC PANEL potassium 4.9 mmol/ L 3.5-5. 1 Not Available [facility] (Lab) [address] [place], [address], 11/05/2021 19:55:24 11/06/19 22 11/05/2021 BASIC METAB OLIC PANEL chloride 95 mmol/ L 98-107 low Not Available [facility] (Lab) [address] [place], [address], 11/05/2021 19:55:24 11/06/19 22 11/05/2021 BASIC METAB OLIC PANEL carbon dioxide 30 mmol/ L 22-30 Not Available [facility] (Lab) [address] [place], [address], 11/05/2021 19:55:24 11/06/19 22 11/05/2021 BASIC METAB OLIC PANEL anion gap 13.9 mmol/ L 14-22 low Not Available [facility] (Lab) [address] [place], [address], 11/05/2021 19:55:24 11/06/19 22 11/05/2021 BASIC METAB OLIC PANEL glucose 191 mg/dL 70-99 high Not Available [facility] (Lab) [address] [place], [address], 11/05/2021 19:55:24 11/06/19 22 11/05/2021 BASIC METAB OLIC PANEL BUN 17 mg/dL 8-19 Not Available [facility] (Lab) [address] [place], [address], 11/05/2021 19:55:24 11/06/19 22 11/05/2021 BASIC METAB OLIC PANEL creatinine 0.63 mg/dL 0.66-1 .25 low Not Available [facility] (Lab) [address] [place], [address], 11/05/2021 19:55:24 11/06/19 22 11/05/2021 BASIC METAB OLIC PANEL GFR >60 Refer ence Range : [place] GFR Healt hy Adult : >60 [...] or ethni c subgr oups, such as Hisky nics. Outsi de the valid ated dk [...] s/kdo qi/gf r_cal culat or Not Available [facility] (Lab) [address] [place], [address], 11/05/2021 19:55:24 11/06/19 22 11/05/2021 BASIC METAB OLIC PANEL calcium 10.1 mg/dL 8.4-10 .2 Not Available [facility] (Lab) [address] [place], [address], 11/05/2021 19:55:24 11/06/19 22 11/05/2021 HEPAT IC/LI TOSHIA PANEL alkaline phosphatase 64 U/L 38-[address] [facility] (Lab) [address] [place], [address], 11/05/2021 19:55:19 11/06/19 22 11/05/2021 HEPAT IC/LI TOSHIA PANEL alanine aminotransfe rase 22 U/L 0-35 Not Available [facility] (Lab) [address] [place], [address], 11/05/2021 19:55:19 11/06/19 22 11/05/2021 HEPAT IC/LI TOSHIA PANEL aspartate aminotransfe rase 29 U/L 15-37 Not Available [facility] (Lab) [address] [place], [address], 11/05/2021 19:55:19 11/06/19 22 11/05/2021 HEPAT IC/LI TOSHIA PANEL bilirubin, total 0.80 mg/dL 0.20-1 .30 Not Available [facility] (Lab) [address] [place], [address], 11/05/2021 19:55:19 11/06/19 22 11/05/2021 HEPAT IC/LI TOSHIA PANEL bilirubin, conjugated (direct) 0.00 mg/dL 0.00-0 .30 Not Available [facility] (Lab) [address] [place], [address], 11/05/2021 19:55:19 11/06/19 22 11/05/2021 HEPAT IC/LI TOSHIA PANEL biliurubin,u ncong. (indirect) 0.30 mg/dL 0.00-1 .1 Not Available [facility] (Lab) [address] [place], [address], 11/05/2021 19:55:19 11/06/19 22 11/05/2021 HEPAT IC/LI TOSHIA PANEL total protein 7.5 g/dL 6.3-8. 2 Not Available [facility] (Lab) [address] [place], [address], 11/05/2021 19:55:19 11/06/19 22 11/05/2021 HEPAT IC/LI TOSHIA PANEL albumin 4.5 g/dL 3.0-4. 4 high Not Available [facility] (Lab) [address] [place], [address], 11/05/2021 19:55:19 11/06/19 22 11/05/2021 HEPAT IC/LI TOSHIA PANEL globulin 3.0 g/dL 2.6-4. 2 Not Available [facility] (Lab) [address] [place], [address], 11/05/2021 19:55:19 11/06/19 22 11/05/2021 HEPAT IC/LI TOSHIA PANEL A/G ratio 1.5 ratio 1.0-2. 0 Not Available [facility] (Lab) [address] [place], [address], 11/05/2021 19:55:19 11/06/19 22 11/05/2021 VITAM IN D 25-HY DROXY [id number] 67.3 NG/mL 30-100 Vitam in D Statu s: Defic ient: <20 ng/mL Insuf ficie nt: 20-29 ng/mL Suffi cient : 30-10 0 ng/mL Not Available [facility] (Lab) [address] [place], [address], 11/05/2021 19:53:42 12/02/1912/01/2021 BASIC METAB OLIC PANEL sodium 137 mmol/ L 137-14 5 Not Available [facility] (Lab) [address] [place], [address], 12/01/2021 19:12:20 12/02/19 22 12/01/2021 BASIC METAB OLIC PANEL potassium 4.7 mmol/ L 3.5-5. 1 Not Available [facility] (Lab) [address] [place], [address], 12/01/2021 19:12:20 12/02/19 22 12/01/2021 BASIC METAB OLIC PANEL chloride 98 mmol/ L 98-107 Not Available [facility] (Lab) [address] [place], [address], 12/01/2021 19:12:20 12/02/19 22 12/01/2021 BASIC METAB OLIC PANEL carbon dioxide 31 mmol/ L 22-30 high Not Available [facility] (Lab) [address] [place], [address], 12/01/2021 19:12:20 12/02/19 22 12/01/2021 BASIC METAB OLIC PANEL anion gap 12.7 mmol/ L 14-22 low Not Available [facility] (Lab) [address] [place], [address], 12/01/2021 19:12:20 12/02/19 22 12/01/2021 BASIC METAB OLIC PANEL glucose 186 mg/dL 70-99 high Not Available [facility] (Lab) [address] [place], [address], 12/01/2021 19:12:20 12/02/19 22 12/01/2021 BASIC METAB OLIC PANEL BUN 15 mg/dL 8-19 Not Available [facility] (Lab) [address] [place], [address], 12/01/2021 19:12:20 12/02/19 22 12/01/2021 BASIC METAB OLIC PANEL creatinine 0.70 mg/dL 0.66-1 .25 Not Available [facility] (Lab) [address] [place], [address], 12/01/2021 19:12:20 12/02/19 22 12/01/2021 BASIC METAB OLIC PANEL GFR >60 Refer ence Range : [place] GFR Healt hy Adult : >60 [...] able on the F websi te: https ://nalini w.kid tess.o rg/pr ofess ional s/kdo qi/gf r_cal culat or Not Available [facility] (Lab) [address] [place], [address], 12/01/2021 19:12:20 12/02/19 22 12/01/2021 BASIC METAB OLIC PANEL calcium 10.0 mg/dL 8.4-10 .2 Not Available [facility] (Lab) [address] [place], [address], 12/01/2021 19:12:20 04/05/20 23 04/05/2023 CBC/C OMPLE TE BLD COUNT W/DIF F white blood cells 7.1 x10'3 /uL 4.2-10 .8 Not Available [facility] (Lab) [address] [place], [address], 04/05/2023 14:07:56 04/05/20 23 04/05/2023 CBC/C OMPLE TE BLD COUNT W/DIF F red blood cells 4.50 x10'6 /uL 3.80-5 .20 Not Available [facility] (Lab) [address] [place], [address], 04/05/2023 14:07:56 04/05/20 23 04/05/2023 CBC/C OMPLE TE BLD COUNT W/DIF F hemoglobin 15.2 g/dL 12.0-1 5.6 Not Available [facility] (Lab) [address] [place], [address], 04/05/2023 14:07:56 04/05/20 23 04/05/2023 CBC/C OMPLE TE BLD COUNT W/DIF F hematocrit 44.7 % 35.7-4 5.7 Not Available [facility] (Lab) [address] [place], [address], 04/05/2023 14:07:56 04/05/20 23 04/05/2023 CBC/C OMPLE TE BLD COUNT W/DIF F mean red cell volume 99.3 fL 82.0-9 9.0 high Not Available [facility] (Lab) [address] [place], [address], 04/05/2023 14:07:56 04/05/20 23 04/05/2023 CBC/C OMPLE TE BLD COUNT W/DIF F mean red cell hemoglobin 33.8 pg 27.0-3 3.0 high Not Available [facility] (Lab) [address] [place], [address], 04/05/2023 14:07:56 04/05/20 23 04/05/2023 CBC/C OMPLE TE BLD COUNT W/DIF F mean RBC HGB concentratio n 34.0 g/dL 31.0-3 6.0 Not Available [facility] (Lab) [address] [place], [address], 04/05/2023 14:07:56 04/05/20 23 04/05/2023 CBC/C OMPLE TE BLD COUNT W/DIF F red cell distribution width 13.0 % 11.8-1 5.5 Not Available [facility] (Lab) [address] [place], [address], 04/05/2023 14:07:56 04/05/2004/05/2023 CBC/C OMPLE TE BLD COUNT W/DIF F platelets 204 x10'3 /uL 150-40 0 Not Available [facility] (Lab) [address] [place], [address], 04/05/2023 14:07:56 04/05/20 23 04/05/2023 CBC/C OMPLE TE BLD COUNT W/DIF F mean platelet volume 11.9 fL 9.0-12 .4 Not Available [facility] (Lab) [address] [place], [address], 04/05/2023 14:07:56 04/05/20 23 04/05/2023 CBC/C OMPLE TE BLD COUNT W/DIF F neutrophils 54.1 % 39.0-7 2.0 Not Available [facility] (Lab) [address] [place], [address], 04/05/2023 14:07:56 04/05/2004/05/2023 CBC/C OMPLE TE BLD COUNT W/DIF F lymphocytes 23.7 % 16.0-4 7.0 Not Available [facility] (Lab) [address] [place], [address], 04/05/2023 14:07:56 04/05/20 23 04/05/2023 CBC/C OMPLE TE BLD COUNT W/DIF F monocytes 7.8 % 5.0-12 .0 Not Available [facility] (Lab) [address] [place], [address], 04/05/2023 14:07:56 04/05/2004/05/2023 CBC/C OMPLE TE BLD COUNT W/DIF F eosinophils 12.0 % 1.0-7. 0 high Not Available [facility] (Lab) [address] [place], [address], 04/05/2023 14:07:56 04/05/2004/05/2023 CBC/C OMPLE TE BLD COUNT W/DIF F basophils 1.1 % 0.0-2. 0 Not Available [facility] (Lab) [address] [place], [address], 04/05/2023 14:07:56 04/05/20 23 04/05/2023 CBC/C OMPLE TE BLD COUNT W/DIF F immature granulocytes 1.3 % 0.00-0 .50 high Not Available [facility] (Lab) [address] [place], [address], 04/05/2023 14:07:56 04/05/20 23 04/05/2023 CBC/C OMPLE TE BLD COUNT W/DIF F neutrophils, absolute count 3.86 x10'3 /uL 1.5-8. 0 Not Available [facility] (Lab) [address] [place], [address], 04/05/2023 14:07:56 04/05/20 23 04/05/2023 CBC/C OMPLE TE BLD COUNT W/DIF F lymphocytes, absolute count 1.69 x10'3 /uL 1.07-3 .43 Not Available [facility] (Lab) [address] [place], [address], 04/05/2023 14:07:56 04/05/20 23 04/05/2023 CBC/C OMPLE TE BLD COUNT W/DIF F monocytes, absolute count 0.56 x10'3 /uL 0.29-0 .99 Not Available [facility] (Lab) [address] [place], [address], 04/05/2023 14:07:56 04/05/20 23 04/05/2023 CBC/C OMPLE TE BLD COUNT W/DIF F eosinophils, absolute count 0.86 x10'3 /uL 0.02-0 .53 high Not Available [facility] (Lab) [address] [place], [address], 04/05/2023 14:07:56 04/05/20 23 04/05/2023 CBC/C OMPLE TE BLD COUNT W/DIF F basophils, absolute count 0.08 x10'3 /uL 0.01-0 .08 Not Available [facility] (Lab) [address] [place], [address], 04/05/2023 14:07:56 04/05/20 23 04/05/2023 CBC/C OMPLE TE BLD COUNT W/DIF F immature granulocytes ,absolute 0.09 x10'3 /uL 0.00-0 .05 high Not Available [facility] (Lab) [address] [place], [address], 04/05/2023 14:07:56 04/05/20 23 04/05/2023 CBC/C OMPLE TE BLD COUNT W/DIF F nucleated red blood cells 0.0 % -0 Not Available [facility] (Lab) [address] [place], [address], 04/05/2023 14:07:56 04/05/20 23 04/05/2023 CBC/C OMPLE TE BLD COUNT W/DIF F NRBC# 0.00 x10'3 /uL Not Available [facility] (Lab) [address] [place], [address], 04/05/2023 14:07:56 04/05/20 23 04/05/2023 URINA LYSIS COMPL ETE/I RIS W/RFX color LIGHT- ORANGE abnormal Not Available [facility] (Lab) [address] [place], [address], 04/05/2023 14:12:42 04/05/20 23 04/05/2023 URINA LYSIS COMPL ETE/I RIS W/RFX appear EXTRA TURBID abnormal Not Available [facility] (Lab) [address] [place], [address], 04/05/2023 14:12:42 04/05/20 23 04/05/2023 URINA LYSIS COMPL ETE/I RIS W/RFX specific gravity 1.015 1.001- 1.030 Not Available [facility] (Lab) [address] [place], [address], 04/05/2023 14:12:42 04/05/20 23 04/05/2023 URINA LYSIS COMPL ETE/I RIS W/RFX pH 5.0 pH_un its 5.0-9. 0 Not Available [facility] (Lab) [address] [place], [address], 04/05/2023 14:12:42 04/05/20 23 04/05/2023 URINA LYSIS COMPL ETE/I RIS W/RFX leukocytes 25 tyrell/u L negati ve- abnormal Not Available [facility] (Lab) [address] [place], [address], 04/05/2023 14:12:42 04/05/20 23 04/05/2023 URINA LYSIS COMPL ETE/I RIS W/RFX nitrite NEGATI VE negati ve- Not Available [facility] (Lab) [address] [place], [address], 04/05/2023 14:12:42 04/05/20 23 04/05/2023 URINA LYSIS COMPL ETE/I RIS W/RFX protein 20 mg/dL negati ve- abnormal Not Available [facility] (Lab) [address] [place], [address], 04/05/2023 14:12:42 04/05/20 23 04/05/2023 URINA LYSIS COMPL ETE/I RIS W/RFX glucose 70 mg/dL normal - abnormal Not Available [facility] (Lab) [address] [place], [address], 04/05/2023 14:12:42 04/05/20 23 04/05/2023 URINA LYSIS COMPL ETE/I RIS W/RFX ketones NEGATI VE mg/dL negati ve- Not Available [facility] (Lab) [address] [place], [address], 04/05/2023 14:12:42 04/05/20 23 04/05/2023 URINA LYSIS COMPL ETE/I RIS W/RFX urobilinogen NORMAL mg/dL normal - Not Available [facility] (Lab) [address] [place], [address], 04/05/2023 14:12:42 04/05/20 23 04/05/2023 URINA LYSIS COMPL ETE/I RIS W/RFX bilirubin NEGATI VE mg/dL negati ve- Not Available [facility] (Lab) [address] [place], [address], 04/05/2023 14:12:42 04/05/20 23 04/05/2023 URINA LYSIS COMPL ETE/I RIS W/RFX blood NEGATI VE mg/dL negati ve- Not Available [facility] (Lab) [address] [place], [address], 04/05/2023 14:12:42 04/05/20 23 04/05/2023 URINA LYSIS COMPL ETE/I RIS W/RFX white blood cells 0-8 /i??h pfi?? 0-8 Not Available [facility] (Lab) [address] [place], [address], 04/05/2023 14:12:42 04/05/20 23 04/05/2023 URINA LYSIS COMPL ETE/I RIS W/RFX red blood cells 0-4 /i??h pfi?? 0-4 Not Available [facility] (Lab) [address] [place], [address], 04/05/2023 14:12:42 04/05/20 23 04/05/2023 URINA LYSIS COMPL ETE/I RIS W/RFX bacteria NONE Not Available [facility] (Lab) [address] [place], [address], 04/05/2023 14:12:42 04/05/20 23 04/05/2023 URINA LYSIS COMPL ETE/I RIS W/RFX mucous OCCASI ONAL /i??l pfi?? abnormal Not Available [facility] (Lab) [address] [place], [address], 04/05/2023 14:12:42 04/05/20 23 04/05/2023 URINA LYSIS COMPL ETE/I RIS W/RFX squamous epithelial MANY /i??l pfi?? abnormal Not Available [facility] (Lab) [address] [place], [address], 04/05/2023 14:12:42 04/05/20 23 04/05/2023 URINA LYSIS COMPL ETE/I RIS W/RFX hyaline cast OCCASI ONAL /i??l pfi?? none seen- abnormal Not Available [facility] (Lab) [address] [place], [address], 04/05/2023 14:12:42 04/05/20 23 04/05/2023 URINA LYSIS COMPL ETE/I RIS W/RFX amorphous crystal OCCASI ONAL /i??h pfi?? abnormal Not Available [facility] (Lab) [address] [place], [address], 04/05/2023 14:12:42 04/05/20 23 04/05/2023 MICRO ALBUM IN RANDO M URINE microalbumin , urine 71.3 mg/L 0.0-16 .6 high Not Available [facility] (Lab) [address] [place], [address], 04/05/2023 14:47:01 04/05/20 23 04/05/2023 VITAM IN D 25-HY DROXY vd25oh 67.4 NG/mL 30-100 Vitam in D Statu s: Defic ient: <20 ng/mL Insuf ficie nt: 20-29 ng/mL Suffi cient : 30-10 0 ng/mL Not Available [facility] (Lab) [address] [place], [address], 04/05/2023 14:54:18 04/05/2004/05/2023 HEMOG LOBIN A1C HA1C 10.6 % 4.0-6. 0 high Diabe shree Scree laura Crite loulou: <5.7% Consi stent with absen ce of diabe shree 5.7-6 .4% Consi stent with incre ased risk for diabe shree (pred iabet es) >OR=6 .5% Consi stent with diabe shree REFER ENCE: Diabe shree Care 2016, 39(Perez ppl.1 ):s13 -s22 Not Available [facility] (Lab) [address] [place], [address], 04/05/2023 15:09:40 04/05/20 23 04/05/2023 TSH W/REF INDIRA FT4 TSH with reflex free T4 5.220 uIU/m L 0.465- 4.680 high Not Available [facility] (Lab) [address] [place], [address], 04/05/2023 15:19:47 04/05/20 23 04/05/2023 T4 FREE free T4 1.28 NG/dL 0.78-2 .19 Not Available [facility] (Lab) [address] [place], [address], 04/05/2023 16:39:20 04/05/20 23 04/05/2023 COMPR EHENS RHONDA METAB OLIC PANEL sodium 135 mmol/ L 137-14 5 low Not Available [facility] (Lab) [address] [place], [address], 04/05/2023 18:13:58 04/05/20 23 04/05/2023 COMPR EHENS RHONDA METAB OLIC PANEL potassium 5.0 mmol/ L 3.5-5. 1 Not Available [facility] (Lab) [address] [place], [address], 04/05/2023 18:13:58 04/05/20 23 04/05/2023 COMPR EHENS RHONDA METAB OLIC PANEL chloride 97 mmol/ L 98-107 low Not Available [facility] (Lab) [address] [place], [address], 04/05/2023 18:13:58 04/05/20 23 04/05/2023 COMPR EHENS RHONDA METAB OLIC PANEL carbon dioxide 30 mmol/ L 22-30 Not Available [facility] (Lab) [address] [place], [address], 04/05/2023 18:13:58 04/05/20 23 04/05/2023 COMPR EHENS RHONDA METAB OLIC PANEL anion gap 13.0 mmol/ L 14-22 low Not Available [facility] (Lab) [address] [place], [address], 04/05/2023 18:13:58 04/05/20 23 04/05/2023 COMPR EHENS RHONDA METAB OLIC PANEL glucose 234 mg/dL 70-99 high Not Available [facility] (Lab) [address] [place], [address], 04/05/2023 18:13:58 04/05/20 23 04/05/2023 COMPR EHENS RHONDA METAB OLIC PANEL BUN 11 mg/dL 8-19 Not Available [facility] (Lab) [address] [place], [address], 04/05/2023 18:13:58 04/05/20 23 04/05/2023 COMPR EHENS RHONDA METAB OLIC PANEL creatinine 0.64 mg/dL 0.66-1 .25 low Not Available [facility] (Lab) [address] [place], [address], 04/05/2023 18:13:58 04/05/2004/05/2023 COMPR EHENS RHONDA METAB OLIC PANEL GFR >60 Refer ence Range : [place] GFR Healt hy Adult : >60 [...] or ethni c subgr oups, such as Hisky nics. Outsi de the valid ated dk [...] calcu lator is avail able on the [facility] websi te: https ://nalini pulido.william parikh/pr ofess ional s/kdo qi/gf r_cal culat or Not Available [facility] (Lab) [address] [place], [address], 04/05/2023 18:13:58 04/05/20 23 04/05/2023 COMPR EHENS RHONDA METAB OLIC PANEL alkaline phosphatase 64 U/L 38-[address] [facility] (Lab) [address] [place], [address], 04/05/2023 18:13:58 04/05/2004/05/2023 COMPR EHENS RHONDA METAB OLIC PANEL alanine aminotransfe rase 28 U/L 0-35 Not Available [facility] (Lab) [address] [place], [address], 04/05/2023 18:13:58 04/05/20 23 04/05/2023 COMPR EHENS RHONDA METAB OLIC PANEL aspartate aminotransfe rase 27 U/L 15-37 Not Available [facility] (Lab) [address] [place], [address], 04/05/2023 18:13:58 04/05/20 23 04/05/2023 COMPR EHENS RHONDA METAB OLIC PANEL bilirubin, total 0.50 mg/dL 0.20-1 .30 Not Available [facility] (Lab) [address] [place], [address], 04/05/2023 18:13:58 04/05/20 23 04/05/2023 COMPR EHENS RHONDA METAB OLIC PANEL calcium 9.8 mg/dL 8.4-10 .2 Not Available [facility] (Lab) [address] [place], [address], 04/05/2023 18:13:58 04/05/20 23 04/05/2023 COMPR EHENS RHONDA METAB OLIC PANEL total protein 7.2 g/dL 6.3-8. 2 Not Available [facility] (Lab) [address] [place], [address], 04/05/2023 18:13:58 04/05/20 23 04/05/2023 COMPR EHENS RHONDA METAB OLIC PANEL albumin 4.5 g/dL 3.0-4. 4 high Not Available [facility] (Lab) [address] [place], [address], 04/05/2023 18:13:58 04/05/20 23 04/05/2023 COMPR EHENS RHONDA METAB OLIC PANEL globulin 2.7 g/dL 2.6-4. 2 Not Available [facility] (Lab) [address] [place], [address], 04/05/2023 18:13:58 04/05/20 23 04/05/2023 COMPR EHENS RHONDA METAB OLIC PANEL A/G ratio 1.7 ratio 1.0-2. 0 Not Available [facility] (Lab) [address] [place], [address], 04/05/2023 18:13:58 04/05/20 23 04/05/2023 MAGNE SIUM magnesium 1.5 mg/dL 1.6-2. 3 low Not Available [facility] (Lab) [address] [place], [address], 04/05/2023 18:14:02 04/05/20 23 04/05/2023 LIPID PANEL cholesterol 148 mg/dL 140-19 9 NIH TAI NSUS RECOM MENDA TION FOR MANOHAR STERO L: ADULT CHILD LOW RISK: <200 <170 BORDE RLINE : <200- 239 ----- HIGH RISK: >240 >200 Not Available [facility] (Lab) [address] [place], [address], 04/05/2023 18:14:11 0904/05/2023 LIPID PANEL triglyceride s 476 mg/dL 0-150 high NIH TAI NSUS REPOR T RECOM MENDA TION FOR TRIGL YCERI PUALO: ADULT CHILD LOW RISK: <150 ----- BODER LINE: 150-1 99 ----- HIGH RISK: >200 ----- Not Available [facility] (Lab) [address] [place], [address], 04/05/2023 18:14:11 04/05/2004/05/2023 LIPID PANEL HDL cholesterol 39 mg/dL 40- low Not Available [facility] (Lab) [address] [place], [address], 04/05/2023 18:14:11 04/05/2004/05/2023 URIC ACID SERUM uric acid 4.5 mg/dL 2.5-6. 2 Not Available [facility] (Lab) [address] [place], [address], 04/05/2023 18:14:21 11/24/19 22 11/22/2021 CT, abdom en + pelvi s, w/o contr ast No observ ation record ed. MIGRATION. [facility] [address] [place], [address], 09/16/2022 06:47:23 12/17/1912/16/2021 US, duple x, renal arter y No observ ation record ed. MIGRATION. [address], [address], 09/16/2022 06:47:23 12/30/19 22 12/16/2021 US, duple x, renal arter y No observ ation record ed. MIGRATION. [address], [address], 09/16/2022 06:47:23 09/23/19 23 DEXA, axial skele ton [facility] [address] [place] [address] [phone] Talha argueta Name: CRISTIANE BRITO Access ion #: [id number] Sex: F : 1944 5 Locati [...] e of -0.9. Page 1 of 2 [facility] Talha argueta Name: CRISTIANE BRITO Access ion #: [id number] Sex: F : 1944 5 Exam [...] MD (CT) (CT) Page 2 of 2 [email or web address] [facility] (Imaging) [address] [place], [address], 04/01/2023 14:47:41 Result Notes Documentation Provider Name and Address Organization Details Recorded Time Dexa, Axial Skeleton : [facility] [address] [place] [address] Patient Name: CRISTIANE BRITO Sex: F : 1945 Location: [facility] Attending Physician: LOYD GRECO Ordering Physician: LOYD GRECO Exam Date: 09/22/2022 10:51 AM Exam Name: XR DEXA AXIAL/HIP/PELVIS/SPINE Admitting Diagnosis(es): RADIOLOGY REPORT - FINAL EXAM: XR DEXA AXIAL/HIP/PELVIS/SPINE HISTORY: osteoporosis COMPARISON: None. TECHNIQUE: TECHNIQUE: Dual energy x-ray of absorption examination of the bilateral hips and lumbar spine in AP projection was performed. FINDINGS: Lumbar Spine (L1-L4): The mean bone mineral density is 1.550 g/cm2 hydroxyapatite, correlating with a T-score of 2.9. Bilateral hips: The mean bone mineral density is 0.898 g/cm2 calcium hydroxyapatite, correlating with a T-score of -0.9. Page 1 of 2 [facility] Patient Name: CRISTIANE BRITO Sex: F : 1945 Exam Date: 09/22/2022 10:51 AM Exam Name: XR DEXA AXIAL/HIP/PELVIS/SPINE Admitting Diagnosis(es): IMPRESSION: 1. The patient's lumbar spine T-score is consistent with a normal bone density. 2. The patient's bilateral hip T-score is consistent with a normal bone density. According to the World Health Organization, T-score values greater than -1.0 are normal, values between -1.0 and -2.5 are categorized as osteopenia, T-score of -2.5 or more are categorized as osteoporosis. Created and electronically signed by: Gideon Coughlin MD Signed Date: 09/22/2022 11:51 AM (CT) Dictated by: Gideon Coughlin MD (CT) (CT) Page 2 of 2 Loyd Greco MD [address] [place] [address], [id number], [facility] Zhilian Zhaopin 04/01/2023 14:47:41 Problems Name Problem SNOMED Code Status Onset Date Resolution Date Notes Provider Name and Address Organization Details Recorded Time Impacted cerumen of bilateral ears 9534498455920 108 Active 2022 Not Available [facility] 3 06:43:07 Cataract 937142581 Active 2021 Not Available [facility] 3 06:43:07 Overweight 328262284 Active 2022 Not Available [facility] 3 06:43:07 Osteoarthr itis of knee 867393784 Active Not Available [facility] 3 06:43:07 Gastroesop hageal reflux disease without esophagiti s 358959524 Active 2022 Not Available [facility] 3 06:43:07 Edema 990374797 Active Not Available [facility] 3 06:43:07 Menopause finding 377413260 Active Not Available [facility] 3 06:43:08 Low back pain 485020911 Active Not Available [facility] 3 06:43:08 Type 2 diabetes mellitus without complicati on 957847430 Active Not Available [facility] 3 06:43:08 Vitamin D deficiency 96426302 Active Not Available [facility] 3 06:43:08 Seasonal allergic rhinitis 037654079 Active 2022 Not Available [facility] 3 06:43:08 Motion sickness 63825210 Active Not Available [facility] 3 06:43:08 Hypertensi ve disorder 40703101 Active 2022 Not Available [facility] 3 06:43:08 Eczema 52029333 Active Not Available [facility] 3 06:43:08 Uncontroll ed type 2 diabetes mellitus 382184379 Active 2020 Not Available [facility] 3 06:43:08 Atrial fibrillati on 86193177 Active Not Available [facility] 3 06:43:08 Hyperlipid emia 08609087 Active Not Available [facility] 3 06:43:08 Fatigue 15984748 Active Not Available [facility] 3 06:43:08 Hypothyroi dism 49916063 Active 2022 Loyd Greco MD [address] [place], [address] , [facility] 3 14:09:48 Hypomagnes emia 863294579 Active 2022 Loyd Greco MD [address], [address] , [facility] 3 14:18:02 Problem Notes None recorded. Procedures Surgical History Date Name Laterality Status Provider Name and Address Organization Details Recorded Time 3 Ear Irrigation completed Loyd Greco MD [address], [place], [address], [employer] 04/20/2023 14:10:17 2 cataract surgery completed Not Available [facility] 09/16/2022 06:39:55 Imaging Results None recorded. Procedure Notes None recorded. Medical Equipment None Reported. Allergies Allergen ID Allergen Name Allergen Category Reaction Reaction Severity Criticality Documentation Date Start Date Code Code System Note Provider Name and Address Organization Details Recorded Time 96633 Zocor medicatio n other Not available Not available 09/16/2022 68154 3 RxNorm leg aches Not Available [facility] 3 06:47:17 17513 Lipitor medicatio n other Not available Not available 09/16/2022 19364 5 RxNorm leg aches Not Available [facility] 3 06:47:17 45100 codeine medicatio n nausea Not available Not available 09/16/2022 2670 RxNorm Not Available [facility] 3 06:47:17 Medications Name Sig [...] e 50 mcg/actua tion nasal spray,marisol [place] 2 sprays every day by intranas al [...] Available pen needle, diabetic 32 gauge x 5/32 use as directed 2022 active Not Available Not Available Not Avai lable Xarelto 20 mg tablet TAKE ONE TABLET BY MOUTH ONCE DAILY active Not Available Not Available No t [...] Not Available Not Avai lable Fluarix Quad 0650-9380 (PF) 60 mcg (15 mcg x 4)/0.5 mL IM syringe ADM 0.5ML UTD active Not Available Not Available No t Available Fluarix Quad 8970-6202 (PF) 60 mcg (15 mcg x 4)/0.5 [...] Not Available No t Available Fluzone High-Dose 8393-6471 (PF) 180 mcg/0.5 mL intramusc ular syringe [...] Respiratory rate Body temperature Body weight Systolic And Diastolic Provider Name and Address Organization Details Last Updated DateTime 3 29.4 kg/m2 162.56 cm 98 % 98 % 75 /min 16 /min 97.2 [degF] 73967.3 g 136/88 mm[Hg] Not Available [facility] 3 06:42:07 Date Recorded Oxygen saturation Oxygen saturation in Arterial blood by Pulse oximetry Heart rate Body temperature Body weight Systolic And Diastolic Provider Name and Address Organization Details Last Updated DateTime 2 95 % 95 % 88 /min 96.7 [degF] 19404.7 4 g 146/94 mm[Hg] Not Available [facility] 3 06:42:07 Date Recorded Body temperature Systolic And Diastolic Provider Name and Address Organization Details Last Updated DateTime 04/01/2023 97.2 [degF] 144/82 mm[Hg] Loyd Greco MD [address] [facility], [address] [address], [place], [address], [place] [facility] [employer] 04/01/2023 14:59:08 Date Recorded Body height Body mass index (BMI) Body weight Heart rate Respiratory rate Oxygen saturation Oxygen saturation in Arterial blood by Pulse oximetry Provider Name and Address Organization Details Last Updated DateTime 3 162.56 cm 29.7 kg/m2 12829.5 3 g 94 /min 20 /min 97 % 97 % Halle Sanchez RN [facility] [employer] 3 14:53:28 Date Recorded Body height Provider Name an d Address Organization Details Last Updated DateTime 04/05/2023 162.56 cm Halle Sanchez RN [facility] [employer] 04/05/2023 09:38:27 Date Recorded Body height Body mass index (BMI) Body weight Body temperature Heart rate Respiratory rate Oxygen saturation Oxygen saturation in Arterial blood by Pulse oximetry Systolic And Diastolic Provider Name and Address Organization Details Last Updated DateTime 3 162.56 cm 29.7 kg/m2 80619.5 6 g 98.1 [degF] 82 /min 16 /min 99 % 99 % 138/78 mm[Hg] Jack [facility] 14:14:38 Social History Question Answer Notes LastModified by Organization Details LastModified Time Tobacco Smoking Status Never Smoker Not Available [facility] 09/16/2022 06:39:44 Are You Blind Or Do You Have Difficulty Seeing? No [id number] Information not available 09/16/2022 In The 14 Days Before Symptom Onset, Have You Had Close Contact With A Laboratory-confi rmed COVID-19 While That Case Was Ill? No [id number] [id number] Information not available 09/16/2022 In The 14 Days Before Symptom Onset, Have You Had Close Contact With A Person Who Is Under Investigation For COVID-19 While That Person Was Ill? No [id number] [id number] Information not available 09/16/2022 Are You Deaf Or Do You Have Serious Difficulty Hearing? No MIGRATION.0301 [id number] Information not available 09/16/2022 What Type Of Diet Are You Following? DIABETIC [email or web address].0301 [id number] Information not available 09/16/2022 Have There Been Any Changes To Your Family Or Social Situation? No MIGRATION.0301 [id number] Information not available 09/16/2022 Where Do You Live? SingleLevelHouse With Basement MIGRATION.0301 [id number] Information not available 09/16/2022 Do You Have Any Pets? No MIGRATION.0301 [id number] Information not available 09/16/2022 What Is Your Relationship Status? MIGRATION.0301 [id number] Information not available 09/16/2022 Do You Have Smoke And Carbon Monoxide Detectors In Your Home? Yes MIGRATION.0301 [id number] Information not available 09/16/2022 Are You Passively Exposed To Smoke? No MIGRATION.0301 [id number] Information not available 09/16/2022 Are There Any Smokers In Your House? No MIGRATION.0301 [id number] Information not available 09/16/2022 Have You Recently Traveled Abroad? No MIGRATION.0301 [id number] Information not available 09/16/2022 Do You Have Difficulty Walking Or Climbing Stairs? No MIGRATION.0301 [id number] Information not available 09/16/2022 Sex: Unknown Functional Status Question Answer Note LastModified by Organizat ion Details LastModified Time What is your level of alcohol consumption? None [id number] Information not available 09/16/2022 Are you able to walk? YESWOREST [id number].[id number] 026 Information not available 09/16/2022 Do you have difficulty doing errands alone? No just tired [id number] Information not available 09/16/2022 Are you able to care for yourself? No [id number] Information not available 09/16/2022 What is your occupation? Retired [id number].[id number] 026 Information not available 09/16/2022 Do you have difficulty dressing or bathing? No [id number] Information not available 09/16/2022 What is your exercise level? None bad knee [id number] Information not available 09/16/2022 Mental Status Question Answer Note LastModified by Organizat ion Details LastModified Time Do you have difficulty concentrating, remembering or making decisions? No [id number] Information not available 09/16/2022 Family History Relationship Description Onset Age of this Age Resolved Age Notes LastModified by Organization Details LastModified Time Unspecified Relation Heart disease many family member [id number] Not available 09/16/2022 06:39:57 Medical History No medical history recorded. Gynecological HistoryNo gynecological history recorded. Obstetrics History GPAL:G 0 P 0 0 0 0 Immunizations Vaccine Type Date Status Note Provider Nam e and Address Organization Details Recorded Time Influenza, high-dose, quadrivalent, PF 3 completed FÁTIMA Marshall [place] [facility] [employer] 04/20/2023 17:51:33 COVID-19, mRNA, LNP-S, PF, 30 mcg/0.3 mL dose 1 completed Not Available [facility] 09/16/2022 06:47:10 COVID-19, mRNA, LNP-S, PF, 30 mcg/0.3 mL dose 1 completed Not Available [facility] 09/16/2022 06:47:10 Influenza, split virus, quadrivalent, preservative 9 completed Not Available [facility] 09/16/2022 06:47:10 Influenza, split virus, trivalent, preservative 4 completed Not Available [facility] 09/16/2022 06:47:10 Influenza, split virus, trivalent, preservative 3 completed Not Available [facility] 09/16/2022 06:47:10 pneumococcal polysaccharide PPV23 2 completed Not Available [facility] 09/16/2022 06:47:10 zoster live 1 completed Not Available [facility] 09/16/2022 06:47:10 Influenza, high-dose, trivalent, PF 6 completed Not Available [facility] 09/16/2022 06:47:10 Pneumococcal conjugate PCV 13 5 completed Not Available [facility] 09/16/2022 06:47:11 Influenza, split virus, trivalent, preservative 5 completed Not Available [facility] 09/16/2022 06:47:11 Past Encounters Encounter ID Performer Location Encounter Start Date Encounter Closed Date Diagnosis/Indication Diagnosis SNOMED-CT Code Diagnosis ICD10 Code Diagnosis Note [id number] Selena Vernon MD [facility] [address] [place] [address] 02/24/2021 00:00:00 02/24/2021 12:00:23 [id number] Selena Vernon MD [facility] [address] [place] [address] 11/05/2021 00:00:00 11/05/2021 12:30:55 [id number] Selena Vernon MD [facility] [address] [place] [address] 12/01/2021 00:00:00 12/01/2021 11:22:36 [id number] Loyd Greco MD [address] [address] [place] [address] 09/15/2022 00:00:00 09/15/2022 12:42:07 [id number] Loyd Greco MD [address] [address] 04/01/2023 14:38:08 04/01/2023 15:39:07 Hypertensive disorder 65778241 I10 Atrial fibrillation 4943 6004 I48.91 Gastroesop hageal reflux disease without esophagitis 907153614 K21.9 Hyperlipidemia 95319633 E78.5 Osteoarthr itis of knee 428270321 M17.9 Type 2 laura betes mellitus without complication 543886674 E11.9 Vitamin D deficiency 347 42515 E55.9 Overweight 966966818 E66 .3 Seasonal a llergic rhinitis 045071521 J30.2 [id number] Loyd Greco MD [address] [address] 04/05/2023 09:12:15 04/05/2023 09:43:11 [id number] Loyd Greco MD [address] [address] 04/20/2023 14:00:41 04/20/2023 15:22:05 Hypertensive disorder 48302211 I10 Atrial fibrillation 4943 6004 I48.91 Gastroesop hageal reflux disease without esophagitis 691362699 K21.9 Hyperlipidemia 81967134 E78.5 Osteoarthr itis of knee 426438111 M17.9 Type 2 laura betes mellitus without complication 912391050 E11.9 Vitamin D deficiency 347 66677 E55.9 Improved Overweight 165901237 E66 .3 Seasonal a llergic rhinitis 351724244 J30.2 Hypothyroidism 78297213 E03.9 Hypomagnesemia 389410784 E83.42 Administra tion of influenza vaccine 93852366 Z23 Impacted c erumen of bilateral ears 7510510938 736423 H61.23 Health Concerns Section Related Observation LastModified by Organization Detai ls LastModified Time None Recorded Concern Status LastModified by Organization Details LastModified Time None Recorded Advance Directives Directive None Recorded Payers Insurance Date Sequence Insurance Name Policy Number Policy Shannon Covered Member ID Shannon Member ID Guarantor Name 09/11/2023 1 [employer] - MEDICARE-[address] JAIL [employer]ARD (MEDICARE) Cristiane Brito [id number] Cristiane Daryl 09/14/2023 2 [facility] 51wan [facility] 63 Cristiane Brito [id number] Cristiane Daryl Notes Date Note Type Note Provider Name and Address Organization Details Recorded Time 04/01/2023 text/html Pt is here for f/u on her annual labs, meds and chronic conditions. Doing overall well. Denies any other concern. Pt has not gone for any labs yet. Pt doesn't like to doctor's office at all.Pt is f/u with Cardio at [facility] and she is on high dose of Atenolol for her A fib. Loyd Greco MD [address] [employer], [place], [address], [employer] 04/01/2023 15:37:45 04/20/2023 text/html Pt is here for f/u on her annual labs and chronic conditions. Doing overall well. Denies any other concern. Pt doesn't like to come to doctor's office at all.Pt is f/u with Cardio at [facility] and she is on high dose of Atenolol for her A fib. Loyd Greco MD [address], [place], [address], [employer] 04/20/2023 15:17:17 OBGyn Episode No OBEpisode recorded.
--- OUTSIDE RECORDS SUMMARY | 2025-01-18 08:38 | XMS_ITS | Clinical Summary ---
Author Organization [facility] Address [address] [place] [address] Care Team Providers Care Die Operator Name Role Phone Rodger Davida TAYLOR Primary Care Provider [phone] Allergies Active Allergy Reactions Criticality Noted Date Comments Atorvastatin Myalgias,Other (see comment) Medium 07/02 Lipitor Codeine GI Upset,Nausea Only Low 03/26/2016 Stomach/GI Upset Simvastatin Myalgias Medium 07/02/2019 Medications digoxin 0.125 MG tablet Take 125 [...] hyperglycemia, without long-term current use of insulin ([facility]) 05/10/2019 Type 2 diabetes mellitus wit hout complication ([facility]) 05/10/2019 Vitamin D deficiency 05/10/2019 Dehydration 05/09/2019 Hyponatremia 03/30/2019 Dizziness 03/30/2019 Cardiomyopathy ([facility]) 10/06/2018 Overview (05/10/2019): Last Assessment & Plan: LV dysfunction is very mild and may improve with better control of heart rate. Hyperlipidemia 02/02/2017 Overview (05/10/2019): Last Assessment & Plan: On chronic lipid lowering therapy with good control. No changes made. Atrial fibrillation ([facility]) 02/01/2017 Overview (05/10/2019): Last Assessment & Plan: Rate is controlled and she is anticoagulated. Essential hypertension 02/01/2017 Overview (05/10/2019): Last Assessment & Plan: Blood pressure is adequately controlled on current regimen. No change was made. Encounters Date Type Department Care Team Description 11/17/2024 11:38 AM CDT - 11/17/2024 2:56 PM CDT Emergency [facility] Emergency Room [address] [place] [address] Zaki Oneill MD Medical Problem Discharge Disposition: Home or Self Care (Routine Discharge) 11/17/2024 Travel from Last 3 Months Social History Tobacco Use Types Packs/Day Years [...] Sign Reading Time Taken Comments Blood Pressure 188/95 11/17/2024 2:03 PM CDT Pulse 85 11/17/2024 2:03 PM CDT Temperature 36.6 C (97.9 F) 11/17/2024 2:03 PM CDT Respiratory Rate 22 11/17/2024 2:03 PM CDT Oxygen Saturation 96% 11/17/2024 2:03 PM CDT Inhaled Oxygen Concentration - - Weight 77.6 kg (171 lb) 11/17/2024 11:38 AM CDT Height 163.8 cm (5' 4.5) 11/17/2024 11:38 AM CD T Body Mass Index 28.9 11/17/2024 11:38 AM CDT Plan of Treatment Health Maintenance Due Date Last Done Comments Kidney Health Evaluation 1945 Diabetes: Retinopathy Eye Exam 1963 Hepatitis C 1963 DTaP, Tdap and Td Vaccines ( 1 - Tdap) 01/18/1964 Annual Medicare Wellness Visit 2010 Dexa Scan (General) 2010 Zoster Vaccines (2 of 3) 03/25/2011 01/28/2011 RSV Immunization or 60+ Years (1 - 1-dose 75+ series) 01/18/2020 Lipid Panel 02/04/2022 02/04/2021, 02/14/2019 Hemoglobin A1C 02/24/2022 11/24/2021, 05/11/2019 COVID-19 Vaccine (4 - 2023-2 5 season) 2024 05/19/2021, 10/11/2020, 09/20/2020 Pneumococcal Vaccine: 50+ Years Completed 05/26/2015, 07/23/2011 Meningococcal B Vaccine Aged Out No l onger eligible based on patient's age to complete this topic Meningococcal Vaccine Aged Out No nadir ashia eligible based on patient's age to complete this topic RSV Immunizations Under 20 Months Aged Out No longer eligible b ased on patient's age to complete this topic Goals Goal Patient Goal Type Associated Problems Recent Progress Patient-Stated? Author Health - patient able to perform ADLs independently General No Lynn Nolasco pediatric oncology nurse Procedure Name Priority Date/Time Associated Diagnosis Comments LACTIC ACID W REFLEX (SEPSIS) TIMED 11/17/2024 1:15 PM CDT XR KNEE RT 3V STAT 11/17/2024 1:11 PM CDT URINALYSIS, AUTO, COMPLETE STAT 11/17/2024 12:38 PM CDT INFLUENZA A & B STAT 11/17/2024 12:17 PM CDT CORONAVIRUS (COVID 19) STAT 12:17 PM CDT LACTIC ACID W REFLEX (SEPSIS) STAT 11/17/2024 12:17 PM CDT XR KNEE LT 3V STAT 11/17/2024 12:16 PM CDT XR CHEST PORTABLE STAT 11/17/2024 12: 16 PM CDT TROPONIN, QUANT STAT 11/17/2024 12:09 PM CDT COMPREHENSIVE METABOLIC PANEL STAT 11/17/2024 12:09 PM CDT CBC W/DIFF AUTOMATED STAT 11/17/2024 12:09 PM CDT ECG 12-LEAD Routine 11/17/2024 11:44 AM CDT HEMOGLOBIN, GLYCOSYLATED Routine 11/24/2021 6:30 AM CDT from Last 3 Months or Most Recently Relevant to Health Maintenance Results * (ABNORMAL) LACTIC ACID W REFLEX (SEPSIS) (11/17/2024 1:15 PM CDT) Only the most recent of2 resultswithin the time period is included. LACTIC ACID VENOUS 3.2(HH) 0.4 - 2.0 MMOL/L 11/17/2024 1:55 PM CDT [facility] Comment: Critical Result(s) Called at: 13:52:29 on 11/17/2024 by: DIANA JESUS to and read back by: SANKET MARIE RN 11/17/2024 1:15 PM CDT us Zaki Oneill MD LABORATORY Final Result [facility] [address] [place] [address], [place] [phone] * XR KNEE RT 3V (11/17/2024 1:11 PM CDT) Anatomical Region Laterality Modality Knee Radiographic Tali ging 11/17/2024 1:09 PM CDT Impressions 11/17/2024 1:09 PM CDT IMPRESSION: No acute findings Ordered By: ZAKI ONEILL Interpreted By: Cuba Leal MD, 11/17/2024 1:09 PM Narrative 11/17/2024 1:09 PM CDT [facility] [address] [place] [address] 3 VIEWS OF THE RIGHT KNEE Clinical History: Pain Comparison: None 3 views of the right knee demonstrate the bony elements to be intact. There is no evidence of fracture or dislocation. The surrounding soft tissues appear normal. Procedure Note Cuba Leal MD - 11/17/2024 [facility] [address] [place] [address] 3 VIEWS OF THE RIGHT KNEE Clinical History: Pain Comparison: None 3 views of the right knee demonstrate the bony elements to be intact.There is no evidence of fracture or dislocation. The surrounding softtissues appear normal. IMPRESSION: No acute findings Ordered By: ZAKI ONEILL Interpreted By: Cuba Leal MD, 11/17/2024 1:09 PM us Zaki Oneill MD GENERAL IMAGING Final Result * (ABNORMAL) URINALYSIS, AUTO, COMPLETE (11/17/2024 12:38 PM CDT) COLOR (U) GREEN 11/17/2024 12:53 PM CDT [facility] TRANSPARENCY CLEAR 11/17/2024 12:53 PM CDT [facility] SPECIFIC GRAVITY (U) <1.005 1.000 - 1.030 11/17/2024 12:53 PM CDT [facility] U PH 6.5 5.0 - 9.0 11/17/2024 12:53 PM CDT [facility] LEUKOCYTES (U) TRACE(A) NEGATIVE 11/17/2024 12:53 PM CDT [facility] NITRITES NEGATIVE NEGATIVE 11/17/2024 12:53 PM CDT [facility] PROTEIN RANDOM (U) NEGATIVE NEGATIVE 11/17/2024 12:53 PM T [facility] GLUCOSE (U) TRACE(A) NEGATIVE 11/17/2024 12:53 PM CDT [facility] KETONES MG/DL (U) NEGATIVE NEGATIVE 11/17/2024 12:53 PM CDT [facility] BILIRUBIN (U) NEGATIVE NEGATIVE 11/17/2024 12:53 PM CDT [facility] BLOOD (U) NEGATIVE NEGATIVE 11/17/2024 12:53 PM CDT [facility] WBC/HPF NONE SEEN 0 - 5 /HPF 11/17/2024 12:53 PM CDT [facility] RBC/HPF NONE SEEN 0 - 5 /HPF 11/17/2024 12:53 PM CDT [facility] EPI/HPF RARE /HPF 11/17/2024 12:53 PM CDT [facility] URINE SPECIMEN OBTAINED BY CLEAN CATCH PROCEDURE / Unknown 11/17/2024 12:38 PM CDT us Zaki Oneill MD URINE ORDERABLES Final Result Performing Organization Address City/[facility]/ZIP Co de Phone Number [facility] [address] [place] [address], [place] [phone] * CORONAVIRUS (COVID-19) MOLECULAR (11/17/2024 12:17 PM CDT) CORONAVIRUS SARS COV 2 RNA NEGATIVE NEGATIVE 11/17/2024 12:37 PM CDT [facility] Comment: NEGATIVE RESULTS DO NOT RULE OUT COVID 19 AND SHOULD NOT BE USED THE SOLE BASIS FOR TREATMENT OR PATIENT MANAGEMENT DECISIONS, INCLUDING INFECTION CONTROL DECISIONS. NEGATIVE RESULTS SHOULD BE CONSIDERED IN THE CONTEXT OF A PATIENT'S RECENT EXPOSURES, HISTORY AND THE PRESENCE OF CLINICAL SIGNS AND SYMPTOMS CONSISTENT WITH COVID 19. THE ID NOW COVID-19 2.0 TEST HAS BEEN AUTHORIZED BY THE FDA UNDER EAU FOR USE BY AUTHORIZED LABORATORIES. PERFORMED BY NUCLEIC ACID AMPLIFICATION FOR MOLECULAR QUALITATIVE DETECTION OF SARS-COV-2. SPECIMEN TYPE NASAL 11/17/2024 12:17 PM CDT [facility] NASOPHARYNGEAL SWAB / Unknown 11/17/2024 12:17 PM CDT us Zaki Oneill MD MICROBIOLOGY - GENERAL ORDERABLE S Final Result Performing Organization Address City/[facility]/ZIP Co de Phone Number [facility] [address] [place] [address], [place] [phone] * INFLUENZA A & B (11/17/2024 12:17 PM CDT) SPECIMEN TYPE NASOPHARYNX 11/17/2024 12:39 PM CDT [facility] INFLUENZA A NEGATIVE NEGATIVE 11/17/2024 12:39 PM CDT [facility] INFLUENZA B NEGATIVE NEGATIVE 11/17/2024 12:39 PM CDT [facility] NASAL STRUCTURE / Unknown 11/17/2024 12:17 PM CDT us Zaki Oneill MD MICROBIOLOGY - GENERAL ORDERABLE S Final Result [facility] [address] [place] [address], * XR KNEE LT 3V (11/17/2024 12:16 PM CDT) Anatomical Region Laterality Modality Knee Radiographic Tali ging 11/17/2024 12:2 2 PM CDT Impressions 11/17/2024 12:22 PM CDT IMPRESSION: No acute bony abnormality about the left knee. Ordered By: ZAKI ONEILL Interpreted By: Eleuterio Alvarez MD, 11/17/2024 12:22 PM Narrative 11/17/2024 12:22 PM CDT [facility] [address] [place] [address] Procedure(s): XR KNEE LT 3V Date of service: 11/17/2024 12:06 PM Provided clinical information: 79 years, Female, fall Procedure and materials: 3 views left knee. Comparison studies: None. Findings: Medial compartment narrowing is present about the left knee. No fracture, dislocation or acute bony abnormality about the left knee. No joint effusion. No lytic changes. Procedure Note Eleuterio Alvarez MD - 11/17/2024 [facility] [address] [place] [address] Procedure(s): XR KNEE LT 3V Date of service: 11/17/2024 12:06 PM Provided clinical information: 79 years, Female, fall Procedure and materials: 3 views left knee. Comparison studies: None. Findings: Medial compartment narrowing is present about the left knee. No fracture, dislocation or acute bony abnormality about the left knee. Nojoint effusion. No lytic changes. IMPRESSION: No acute bony abnormality about the left knee. Ordered By: ZAKI ONEILL Interpreted By: Eleuterio Alvarez MD, 11/17/2024 12:22 PM Zaki Oneill MD GENERAL IMAGING Final Result * XR CHEST PORTABLE (11/17/2024 12:16 PM CDT) Anatomical Region Laterality Modality Chest Radiographic Tali ging 11/17/2024 12:2 1 PM CDT Impressions 11/17/2024 12:21 PM CDT IMPRESSION: Linear opacification left midlung concerning for changes of atelectasis. Ordered By: ZAKI ONEILL Interpreted By: Eleuterio Alvarez MD, 11/17/2024 12:21 PM Narrative 11/17/2024 12:21 PM CDT [facility] [address] [place] [address] Procedure(s): XR CHEST PORTABLE Date of service: 11/17/2024 12:06 PM Provided clinical information: 79 years, Female, weakness Procedure and materials: AP portable Comparison studies: March 31, 2019. Findings: Cardiac silhouette is within normal limits. Linear opacification left midlung concerning for changes of atelectasis. No definite consolidative changes are present in the right left lung. No blunting the costophrenic angles. Procedure Note Eleuterio Alvarez MD - 11/17/2024 [facility] [address] [place] [address] Procedure(s): XR CHEST PORTABLE Date of service: 11/17/2024 12:06 PM Provided clinical information: 79 years, Female, weakness Procedure and materials: AP portable Comparison studies: March 31, 2019. Findings: Cardiac silhouette is within normal limits. Linear opacification leftmidlung concerning for changes of atelectasis. No definite consolidativechanges are present in the right left lung. No blunting the costophrenicangles. IMPRESSION: Linear opacification left midlung concerning for changes of atelectasis. Ordered By: ZAKI ONEILL Interpreted By: Eleuterio Alvarez MD, 11/17/2024 12:21 PM Zaki Oneill MD GENERAL IMAGING Final Result * (ABNORMAL) COMPREHENSIVE METABOLIC PANEL (11/17/2024 12:09 PM CDT) GLUCOSE 225(H) 70 - 99 MG/DL 11/17/2024 12:29 PM CDT [facility] BUN 10 7 - 18 MG/DL 11/17/2024 12:29 PM CDT [facility] CREATININE S/P/B 0.70 0.55 - 1.02 MG/DL 11/17/2024 12:29 PM CDT [facility] SODIUM S/P/B 136 136 - 145 MMOL/L 11/17/2024 12:29 PM CDT [facility] POTASSIUM S/P/B 4.2 3.5 - 5.1 MMOL/L 11/17/2024 12:29 PM CDT [facility] CHLORIDE S/P/B 96(L) 100 - 108 MMOL/L 11/17/2024 12:29 PM CDT [facility] CO2 29.8 21 - 32 MMOL/L 11/17/2024 12:29 PM [facility] CALCIUM S/P/B 9.5 8.5 - 10.1 MG/DL 11/17/2024 12:29 PM [facility] BILIRUBIN TOTAL S/P/B 0.5 0.2 - 1.2 MG/DL 11/17/2024 12:29 PM [facility] TOTAL PROTEIN S/P/B 6.8 6.4 - 8.2 G/DL 11/17/2024 12:29 PM [facility] ALBUMIN S/P/B 3.6 3.4 - 5.0 G/DL 11/17/2024 12:29 PM [facility] AST 20 15 - 37 U/L 11/17/2024 12:29 PM [facility] ALT 25 14 - 55 U/L 11/17/2024 12:29 PM [facility] ALKALINE PHOSPHATASE S/P/B 59 50 - 136 U/L 11/17/2024 12:29 PM [facility] ANION GAP 10.2 5 - 15 MMOL/L 11/17/2024 12:29 PM [facility] BUN CREATININE RATIO 14.3 6 - 26 11/17/2024 12:29 PM [facility] A/G RATIO 1.1 1.0 - 2.0 RATIO 11/17/2024 12:29 PM [facility] GFR ESTIMATE 88(L) >90 ML/MIN/1.7 3 M2 11/17/2024 12:29 PM [facility] Comment: NOTE: eGFR is not calculated for patients <18 years of age. This is an estimated GFR calculation using the new CKD EPI creatinine equation without race and so does not require a correction factor for race. This estimated GFR should not be used for calculating drug doses. 11/17/2024 12:0 9 PM CDT Zaki Oneill MD LABORATORY Final Result [facility] [address] [place] [address], [place] [phone] * (ABNORMAL) CBC W/DIFF AUTOMATED (11/17/2024 12:09 PM CDT) Pathologist [facility] WBC 9.08 4.4 - 11.0 x10'3/uL 11/17/2024 12:15 PM CDT [facility] RBC 3.88(L) 4.50 - 5.10 x10'6/uL 11/17/2024 12:15 PM CDT [facility] HGB 13.2 12.3 - 15.3 G/DL 11/17/2024 12:15 PM CDT [facility] HCT 37.7 35.9 - 44.6 % 11/17/2024 12:15 PM CDT [facility] MCV 97.2(H) 80.0 - 96.0 FL 11/17/2024 12:15 PM CDT [facility] MCH 34.0(H) 25.3 - 30.9 PG 11/17/2024 12:15 PM CDT [facility] MCHC 35.0(H) 31.0 - 34.1 G/DL 11/17/2024 12:15 PM CDT [facility] RDW 13.0 12.4 - 15.1 % 11/17/2024 12:15 PM CDT [facility] PLT 183 151 - 353 x10'3/uL 11/17/2024 12:15 PM CDT [facility] MPV 11.4 9.6 - 12.0 FL 11/17/2024 12:15 PM CDT [facility] RBC MORPHOLOGY NORMAL 11/17/2024 12:15 PM CDT [facility] PLT MORPH. NORMAL 11/17/2024 12:15 PM CDT [facility] WBC MORPHOLOGY NORMAL 11/17/2024 12:15 PM CDT [facility] LYMPHOCYTES % 12.0(L) 15.8 - 45.0 % 11/17/2024 12:15 PM CDT [facility] NEUTROPHILS % 68.5 42.1 - 71.9 % 11/17/2024 12:15 PM CDT [facility] MONOCYTES % 9.8 5.7 - 12.5 % 11/17/2024 12:15 PM CDT [facility] EOSINOPHILS 8.1(H) 0.0 - 5.6 % 11/17/2024 12:15 PM CDT [facility] BASOPHILS 0.9 0.0 - 1.3 % 11/17/2024 12:15 PM CDT [facility] ABS. NEUTROPHILS 6.22(H) 1.40 - 6.00 x10'3/uL 11/17/2024 12:15 PM CDT [facility] IMMATURE GRANS % 0.7(H) 0.0 - 0.5 % 11/17/2024 12:15 PM CDT [facility] ABS. LYMPHOCYTES 1.09 0.80 - 4.70 x10'3/uL 11/17/2024 12:15 PM CDT [facility] 11/17/2024 12:0 9 PM CDT us Zaki Oneill MD LABORATORY Final Result [facility] [address] [place] [address], [place] [phone] * TROPONIN, QUANT (11/17/2024 12:09 PM CDT) TROPONIN I HIGH SENSITIVITY 10 0 - 50 ng/L 11/17/2024 12:32 PM CDT [facility] Comment: HIGH DOSES OF BIOTIN, TROPONIN-SPECIFIC AUTOANTIBODIES, AND ANTIBODY THERAPY CONTAINING HAMA MAY INTERFERE WITH THIS TEST RESULT. CORRELATION TO CLINICAL HISTORY AND PRESENTATION RECOMMENDED. 11/17/2024 12:0 9 PM CDT us Zaki Oneill MD LABORATORY Final Result [facility] [address] [place] [address], [place] [phone] * ECG 12 lead (11/17/2024 11:44 AM CDT) 11/17/2024 11:4 4 AM CDT Narrative [facility] RAD - 11/18/2024 12:52 PM CDT [facility] Test Date: 2024-11-17 Pat Name: CRISTIANE BRITO Department: 85 Room: [place] [address] Gender: Female Defect Repairer Glassware: : 1945 Requested By: ZAKI ONEILL Order Number: [id number] Reading MD: Rogelio Hollingsworth Measurements Intervals [place] Rate: 88 P: 0 NV: 0 QRS: -7 QRSD: 88 T: 22 QT: 351 QTc: 425 Interpretive Statements ATRIAL FIBRILLATION NONSPECIFIC ST & T-WAVE ABNORMALITY ABNORMAL RHYTHM ECG Compared to ECG 05/10/2019 11:17:16 T-wave abnormality now present ST (T wave) deviation no longer present Procedure Note Rogelio Hollingsworth MD - 11/18/2024 [facility] Test Date: 2024-11-17 Pat Name: CRISTIANE BRITO Department: 85 Room: EXAM 505 Gender: Female Defect Repairer Glassware: : 1945 Requested By: ZAKI ONEILL Order Number: [id number] Reading MD: Rogelio Hollingsworth Measurements Intervals [place] Rate: 88 P: 0 NV: 0 QRS: -7 QRSD: 88 T: 22 QT: 351 QTc: 425 Interpretive Statements ATRIAL FIBRILLATION NONSPECIFIC ST & T-WAVE ABNORMALITY ABNORMAL RHYTHM ECG Compared to ECG 05/10/2019 11:17:16 T-wave abnormality now present ST (T wave) deviation no longer present us Zaki Oneill MD ECG ORDERABLES Final Result Performing Organization Address City/[facility]/ZIP Co de Phone Number [facility]) RAD * (ABNORMAL) HEMOGLOBIN, GLYCOSYLATED (11/24/2021 6:30 AM CDT) HGB A1C 7.8(H) <5.7 % 11/24/2021 7:44 AM CDT [facility] Comment: INCREASED RISK OF DIABETES <5.7% NON-DIABETES 5.7-6.4% INCREASED RISK FOR FUTURE DIABETES > OR = 6.5 CONSISTENT WITH DIABETES STANDARDS OF MEDICAL CARE IN DIABETES-2010 DIABETES CARE, 33(SUPP 1): S1-S61,2010 ESTIMATED AVG GLUCOSE 177 mg/dL 11/24/2021 7:44 AM CDT [facility] 11/24/2021 6:30 AM CDT us Domonique Osorio MD LABORATORY Final Result [facility] [address] [place] [address], [place] [phone] from Last 3 Months or Most Recently Relevant to Health Maintenance Insurance [facility] [employer] [facility] Advance Directives * Full Code (Latest Code Status on File) Date Activated Date Inactivated Comments 11/23/2021 3:18 PM 11/24/2021 6:20 PM * Full Code Date Activated Date Inactivated Comments 05/09/2019 11:17 PM 05/10/2019 10:09 PM * Full Code Date Activated Date Inactivated Comments 03/30/2019 4:50 PM 04/01/2019 2:58 PM Care Teams Die Operator Relationship Specialty Start Date End Date Davida Soares NP [address] [place] [phone] PCP - General NURSE PRACTITIONER 03/30/19
--- OUTSIDE RECORDS SUMMARY | 2025-01-18 08:38 | XMS_ITS | Encounter Summary ---
Author Organization [facility] Address [address] [place] [address] Care Team Providers Care Rocket Assembly Operator Name Role Phone Rodger Davida TAYLOR Primary Care Provider Encounter Details Date Type Department Care Team (Late st Contact Info) Description 04/08/2019 Hospital Follow-up Call [facility] Med/Surg [address] [place] [address] Julia Ayers RN Social History [...] Author Status No 04/01/2019 11:43 AM CDT Tyra Lozano RN Active documented as of this encounter Mental Status * Because of a physical, mental, or emotional condition, do you have serious difficulty concentrating, remembering, or making decisions? Answer Entry Date Author Status No 04/01/2019 11:43 AM CDT Tyra Lozano RN Active documented in this encounter Plan of Treatment Not on file documented as of this encounter Visit Diagnoses Not on filedocumented in this encounter Additional Health Concerns Infection Onset Date Last Indicated Resolved Time COVID-19 Rule Out 11/17/2024 11/17/2024 11/17/2024 12:37 PM CDT Respiratory Rule Out 11/17/2024 11/17/2024 025 12:40 PM CDT documented as of this encounter Care Teams Rocket Assembly Operator Relationship Specialty Start Date End Date Davida Soares NP [address] [place] [id number] PCP - General NURSE PRACTITIONER 03/30/19 documented as of this encounter
[2025-01-18 13:44] LABS: MALB Creatinine Ratio 35.0 mg/g (0-30)
[2025-01-18 14:06] LABS: Hemoglobin A1C 8.7 % (<5.7)
[2025-01-18 14:23] LABS: Vitamin B12 > 1000.0 pg/mL (239-931)
== END 2025-01-18 08:35 | disposition home or self-care (01) ==
PROVIDERS: PCP Clinical Nurse Specialist; Visit Provider Clinical Nurse Specialist
DX: E11.65 Type 2 diabetes mellitus with hyperglycemia (principal); E78.5 Hyperlipidemia, unspecified; I48.21 Permanent atrial fibrillation; I10 Essential (primary) hypertension; Z79.4 Long term (current) use of insulin
CPT/HCPCS: 36415; 82043; 82607; 83036

== ENCOUNTER 2025-03-01 15:40 | Outpatient (CLI) | payer MEDICARE, SELFPAY ==
--- OUTSIDE RECORDS SUMMARY | 2025-03-01 15:45 | XMS_ITS | Clinical Summary ---
Author Organization [facility] Address [address] [place] [address] Phone Care Team Providers Care Motion Study Analyst Name Role Phone Davida Soares NP Primary Care Provider [phone] Allergies Active Allergy Reactions Criticality Noted Date Comments Codeine 07/02/2019 Atorvastatin Myopathy 07/02/2019 Simvastatin Myopathy 07/02/2019 Medications atenolol (TENORMIN) 100 MG tablet Take 150 mg by mouth 2 times daily 9 Active cholecalciferol (D3-50) 1.25 MG (34394 UT) capsule Take 50,000 Units by mouth [...] 100 UNIT/ML injection 2 Active TRUEplus Pen [place] 32G X 4 MM misc 2 Active [...] on file Legal Sex Female 7:53 PM [facility] Gender Identity Not on file Sexual [...] ( season) 2024, 09/20/2020 Influenza Vaccine (#1) 2025 5, 05/26/2014, 05/25/2013 Pneumococcal PPSV23/PCV13 65 + Years / Low and Medium Risk Completed 05/27/2015, 07/23/2011 Insurance MEDICARE RAILROAD [facility] Care Teams Motion Study Analyst Relationship Specialty Start Date End Date Davida Soares NP [facility] [place] [address] PCP - General Internal Medicine 06/26/19
--- OUTSIDE RECORDS SUMMARY | 2025-03-01 15:45 | XMS_ITS | Clinical Summary ---
Author Organization [facility] Address [address] [place] [address] Care Team Providers Care Clothing Cutter Name Role Phone Rodger Davida TAYLOR Primary Care Provider [phone] Allergies Active Allergy Reactions Criticality Noted Date [...] hyperglycemia, without long-term current use of insulin ([facility]) 05/10/2019 Type 2 diabetes mellitus wit hout complication ([facility]) 05/10/2019 Vitamin D deficiency 05/10/2019 Dehydration 05/09/2019 Hyponatremia 03/30/2019 Dizziness 03/30/2019 Cardiomyopathy ([facility]) 10/06/2018 Overview (05/10/2019): Last Assessment & Plan: LV dysfunction is very mild and may improve with better control of heart rate. Hyperlipidemia 02/02/2017 Overview (05/10/2019): Last Assessment & Plan: On chronic lipid lowering therapy with good control. No changes made. Atrial fibrillation ([facility]) 02/01/2017 Overview (05/10/2019): Last Assessment & Plan: [...] Evaluation 1945 Diabetes: Retinopathy Eye Exam 1963 DTaP, Tdap and Td Vaccines ( [...] perform ADLs independently General No Lynn Nolasco product development manager Procedure Name Priority Date/Time Associated Diagnosis Comments HEMOGLOBIN, GLYCOSYLATED Routine 11/24/2021 6:30 AM CDT from Last 3 Months or Most Recently Relevant to Health Maintenance Results * (ABNORMAL) HEMOGLOBIN, GLYCOSYLATED (11/24/2021 6:30 AM CDT) HGB A1C 7.8(H) <5.7 % 11/24/2021 7:44 AM CDT [facility] Comment: INCREASED RISK OF DIABETES <5.7% NON-DIABETES 5.7-6.4% INCREASED RISK FOR FUTURE DIABETES > OR = 6.5 CONSISTENT WITH DIABETES STANDARDS OF MEDICAL CARE IN DIABETES-2010 DIABETES CARE, 33(SUPP 1): S1-S61,2010 ESTIMATED AVG GLUCOSE 177 mg/dL 11/24/2021 7:44 AM CDT [facility] 11/24/2021 6:30 AM CDT us Domonique Melvin Osorio MD LABORATORY Final Result [facility] [address] [place] [address], from Last 3 Months or Most Recently Relevant to Health Maintenance Insurance Advance Directives * Full Code (Latest Code Status on File) Date Activated Date Inactivated Comments 11/23/2021 3:18 PM 11/24/2021 6:20 PM * Full Code Date Activated Date Inactivated Comments 05/09/2019 11:17 PM 05/10/2019 10:09 PM * Full Code Date Activated Date Inactivated Comments 03/30/2019 4:50 PM 04/01/2019 2:58 PM Care Teams Clothing Cutter Relationship Specialty Start Date End Date Davida Soares NP [address] [place] [address] PCP - General NURSE PRACTITIONER 03/30/19
--- OUTSIDE RECORDS SUMMARY | 2025-03-01 15:45 | XMS_ITS | Encounter Summary ---
Author Organization [facility] Address [address] [place] [address] Care Team Providers Care Technology Methodology Consultant Name Role Phone Rodger Davida TAYLOR Primary Care Provider [phone] Encounter Details Date Type Department Care Team (Late st Contact Info) Description 04/08/2019 Hospital Follow-up Call [facility] Med/Surg [address] [place] [address] Julia Ayers RN Social History [...] documented as of this encounter Care Teams Technology Methodology Consultant Relationship Specialty Start Date End Date Davida Soares NP [address] [place] [id number] PCP - General NURSE PRACTITIONER 03/30/19 documented as of this encounter
--- OUTSIDE RECORDS SUMMARY | 2025-03-01 15:45 | XMS_ITS | Clinical Summary ---
Author Organization [facility] Address [address] [place] [address] Care Team Providers Care Food General Manager Name Role Phone Felisa Wilks NP Primary Care Provider [phone] Allergies Active Allergy Reactions Criticality Noted Date [...] level. Assessment & Plan (05/26/2019 4:06 PM ENGINEERING TECHNICAL ANALYST): Rate is a little fast. Will resume [...] made. Assessment & Plan (05/26/2019 4:07 PM ENGINEERING TECHNICAL ANALYST): Since the discontinuation of hydrochlorothiazide, blood pressure [...] Description 12/04/2024 10:45 AM CDT Office Visit [facility] at [address] [place] [address] Darien Mayen MD Chronic atrial fibrillation (Primary Dx); Hypertension associated with diabetes (HCC); Mixed diabetic hyperlipidemia associated with type 2 diabetes mellitus (HCC); Chronic anticoagulation; Atypical chest pain 12/04/2024 Telephone [facility] [address] [place] [address] Darien Mayen MD from Last [...] on file Legal Sex Female 1:59 AM ENGINEERING TECHNICAL ANALYST Gender Identity Not on file Sexual Orientation [...] ORDERABLES Kelli mayberry Result Performing Organization Address City/[facility]/ZIP Co de Phone Number EXTERNAL LAB * eGFR (05/11/2019 6:06 AM CDT) eGFR 89 mL/min/1.7 3 m2 [facility] Comment: Interpretive Data Reference Interval Normal >/= 90 mL/min/1.73m2 Mildly decreased* 60 - 89 mL/min/1.73m2 Mildly to moderately decreased 45 - 59 mL/min/1.73m2 Moderately to severely decreased 30 - 44 mL/min/1.73m2 Severely decreased 15 - 29 mL/min/1.73m2 Kidney Failure < 15 mL/min/1.73m2 *Relative to young adult level If -Mauritanian multiply value by 1.16. Estimated glomerular filtration [...] ORDERABLES Fin al Result Performing Organization Address [facility]/ZIP Co de Phone Number [facility] [address] Department [place] [address] * (ABNORMAL) Hemoglobin A1c (05/11/2019 6:06 AM CDT) Hgb A1C 9.2(H) 4.0 - 5.6 % [facility] Estimated Average Glucose 217 mg/dL [facility] Comment: The ADA recommends reporting an estimated Average Glucose (eAG) with all Hemoglobin A1c results using the equation derived from a study of 507 normal and diabetic adults. Minority populations were underrepresented and children were not included. (Diabetes Care 31:6636-0486, 2008). The eAG is not equivalent to a fasting glucose. Blood specimen (specimen) 05/11/2019 6:06 AM CDT 05/11/2019 7:00 AM CDT us Tam Milton MD LAB BLOOD ORDERABLES Fin al Result [facility] [address] Department [place] [address] from Last 3 Months or Most Recently Relevant to Health Maintenance Insurance [facility] MEDICARE ADVANTAGE [facility] Address: [address] [address] Advance Directives For more information, please contact: [phone] * Full Code (Latest Code Status on File) Date Activated Date Inactivated Comments 05/10/2019 8:28 PM 05/11/2019 9:13 PM Care Teams Food General Manager Relationship Specialty Start Date End Date Felisa Wilks NP [address] [place] [address] PCP - General Cardiovascular Disease 12/04/24
[2025-03-01 18:41] LABS: Add Urine Microscopic? YES; Appearance Urine Clear (Clear); Glucose Urine UA Negative (Negative); Leukocyte Esterase Ur 2+ LEU/UL (Negative); Nitrate Urine Negative (Negative); Non Pathogenic Casts 0-2; Specific Grav Ur 1.020 (1.001-1.035)
[2025-03-01 18:46] LABS: Alanine Aminotransferase 21 U/L (6-35); Albumin Level 4.5 g/dL (3.5-5.1); Alkaline Phosphatase 66 U/L (38-126); Anion Gap 10 mmol/L (4-12); Aspartate Amino Transferase 39 U/L (14-36); Bilirubin,Total 0.4 mg/dL (0.2-1.3); Blood Urea Nitrogen 13 mg/dL (7-17); Calcium 10.2 mg/dL (8.4-10.2); Carbon Dioxide 29 mmol/L (22-30); Chloride 98 mmol/L (98-107); Estimated Glomerular Filt Rate > 60; Glucose 150 mg/dL (65-110); Potassium 4.5 mmol/L (3.4-5.0); Sodium 137 mmol/L (137-145); Total Protein 7.6 g/dL (6.3-8.2)
[2025-03-01 19:04] LABS: Hematocrit 42.7 % (37.0-47.0); Hemoglobin 13.8 g/dL (12.0-15.0); Immature Granulocyte Percent A 0.5 % (0-0.5); Lymphocytes Absolute Auto 1.43 K/mm3 (0.9-3.2); Mean Corpuscular HGB Conc 32.3 g/dl (32-36); Mean Corpuscular Hemoglobin 32.3 pg (26-34); Mean Corpuscular Volume 100.0 fl (80-100); Nucleated Red Blood Cells Absolute Auto 0.000 K/mm3 (0.0-0.012); Nucleated Red Blood Cells Perc 0.0 % (0.0-0.2); Platelet Count Result 250 k/mm3 (150-375); Red Blood Count 4.27 M/mm3 (4.2-5.4); White Blood Count 9.5 K/mm3 (4.5-10.0)
[2025-03-01 19:09] LABS: MALB Creatinine Ratio 38.2 mg/g (0-30)
[2025-03-01 19:24] LABS: Thyroid Stimulating Hormone 2.710 uIU/mL (0.465-4.680)
[2025-03-01 19:46] LABS: Vitamin B12 > 1000.0 pg/mL (239-931)
== END 2025-03-01 15:41 | disposition home or self-care (01) ==
PROVIDERS: PCP Clinical Nurse Specialist; Visit Provider Clinical Nurse Specialist
DX: I48.21 Permanent atrial fibrillation (principal); E11.65 Type 2 diabetes mellitus with hyperglycemia; Z79.4 Long term (current) use of insulin; I10 Essential (primary) hypertension
CPT/HCPCS: 36415; 80053; 81001; 82043; 82607; 84443; 85025; 87086